=== PATIENT | male | born 1965 | race Caucasian/White ===

== ENCOUNTER 2017-11-22 08:45 | Day surgery (SDC) | payer MEDICARE ==
[2017-11-22] VITALS (7 sets, daily range): BP systolic 92–114; BP diastolic 50–80; PULSE 57–70; RESP 16–22; TEMP 96.7–97.2; O2SAT 90–98
[~2017-11-22] VITALS: Ht 175.3 cm; Wt 90.0 kg
[~2017-11-22 08:45] MED LIST: ACET325 PO; CYCL-36 PO; GABA300C3 PO; KEPP1000 PO; LACT20SO4 PO; LEVO.025 PO; LEXA20TA PO; LORA2INJ2 IM; LORT5TAB PO; POTA-243 PO; SERO100T PO; SERT50 PO; SIMV10TA PO; TRAZ50TA4 PO
[2017-11-22] MEDS ORDERED: SODIUM CHLORIDE 0.9% 1000 ML IV SCH (09:15)
[2017-11-22] MEDS ORDERED: ceFAZolin 2 GM PREMIX 50 ML - gastrostomy and jejunostomy initial insertion IV SCH (09:15)
[2017-11-22 09:21] LABS: HEMATOCRIT 39.5 % (39.0-51.0); HEMOGLOBIN 13.7 GM/DL (13.0-17.0); MEAN CELL VOLUME 88.1 FL (80.0-100.0); MEAN CORPUSCULAR HEMOGLOBIN 30.5 PG (27.0-34.0); MEAN CORPUSCULAR HGB CONC 34.6 % (32.0-36.0); MEAN PLATELET VOLUME 7.5 FL (7.0-11.0); PLATELET COUNT 181 TH/MM3 (150-450); RED BLOOD COUNT 4.48 MIL/MM3 (4.50-5.90); RED CELL DISTRIBUTION WIDTH 14.3 % (11.6-17.2); WHITE BLOOD COUNT 1.9 TH/MM3 (4.0-11.0)
[2017-11-22 09:33] LABS: PROTHROMBIN TIME - PATIENT 10.5 SEC (9.8-11.6)
[2017-11-22] MEDS ORDERED: MIDAZOLAM HCL 2 MG/2 ML VIAL ONE (09:53)
[2017-11-22 10:16] LABS: BANDS 4 % (0-6); CORRECTED NUCLEATED RBC 1 /100 WBC (0-0); LYMPHOCYTES 37 % (9-44); MONOCYTES 24 % (0-8); NEUTROPHIL # MANUAL DIFF 0.7 TH/MM3 (1.8-7.7); NUCLEATED RED BLOOD CELL 1 (0-0); POLYS (SEG NEUTROPHILS) 35 % (16-70)
[2017-11-22] MEDS ORDERED: GLUCAGON 1 MG/ML VIAL ONE (10:21)
--- NOTE | 2017-11-22 12:42 | PD.RAD ---
Post Procedure Progress Note Pre Procedure Diagnosis: (1) Trauma Post Procedure Diagnosis: (1) Trauma Procedure Date: Nov 22, 2017 Supervising Radiologist: Darin Burgess Proceduralist/Assist: Andrea Davenport, RT(R), Wandy Padron RT(R) Anesthesia: Conscious Sedation Plan of Activity Patient to Unit: Nursing Unit Patient Condition: Fair See PACS Report for procedural detail/treatment Feeding Tube Gastrostomy Placement Darin Burgess MD Nov 22, 2017 12:41
--- NOTE | 2017-11-22 13:53 | RADRPT ---
EXAM DATE/TIME: 11/22/2017 10:38 [place] COMPARISON: No previous studies available for comparison. INDICATIONS : Patient presents with a need for a gastronomy tube, here for placement. MEDICAL HISTORY : Stroke Depresion Anxiety SC Disorder Hypothyroidism SURGICAL HISTORY : Crainiotomy ENCOUNTER: Initial ACUITY: 1 week PAIN SCORE: FLUORO TIME: 4 minutes IMAGE SERIES: 1 SEDATION TIME: 20 minutes CONTRAST: 20 cc Omnipaque (iohexol) 350 MEDICATION(S): 1.) 1.5 mg midazolam (Versed) IV 2.) 75 mcg Fentanyl (Sublimaze) IV DEVICE(S): 1.) 18 Fr gastrostomy tube PROCEDURE : 1. Limited abdominal ultrasound. 2. Fluoroscopically guided gastrostomy tube placement. 3. Conscious sedation with continuous EKG and oximetry monitoring. The risks, benefits and alternatives to the procedure were explained and verbal and written consent w as obtained. The site was prepped in sterile fashion. Full sterile technique was used, including ca p, mask, sterile gloves and gown and a large sterile sheet. Hand hygiene and 2% chlorhexidine and/or betadine/alcohol prep was utilized per protocol for cutaneous antisepsis. The skin and subcutaneous tissues were infiltrated with local anesthetic solution. Sterile gel and sterile probe cover were u tilized for ultrasound guidance. Ultrasound was used to jennifer the position of the liver. The stomach was insufflated with room air. Th ree percutaneous fasteners were placed to secure the anterior gastric wall. A small incision was made between the fasteners. The stomach was accessed with an 18 gauge needle. A n 0.035 wire was advanced into the small bowel. The tract was dilated. The gastrostomy tube was int roduced through a peel-away sheath. The position was confirmed with an injection of contrast. Conscious sedation was performed with the prescribed dosages and duration as above in the presence of an independent trained radiology nurse to assist in the monitoring of the patient. EKG and oximetry remained stable throughout the procedure. The patient tolerated the procedure well and there were n o complications. The patient was sent to post anesthesia recovery in stable condition. CONCLUSION: 1. Uncomplicated gastrostomy tube placement Darin Burgess MD on November 22, 2017 at 13:34 Board Certified Radiologist. This report was verified electronically.
== END 2017-11-22 13:55 ==
LOC: HROP 08:45 → HRIP 08:45 → HROP 13:55
PROVIDERS: ATTEND Family Medicine
DX: R62.7 Adult failure to thrive (principal); Z43.1 Encounter for attention to gastrostomy; Z79.899 Other long term (current) drug therapy
CPT/HCPCS: 49440; 85007; 85027; 85610; 85730; 99152; 99153; C1769; C1887; J0690; J1610; J2250; J3010; J7030

== ENCOUNTER 2018-06-18 13:42 | Inpatient (IN) ==
--- NOTE | 2018-06-18 14:36 | ED ---
HPI General Chief complaint: Computer Systems Integrator Problem Stated complaint: Medical Time Seen by Provider: 06/18/18 13:49 Source: EMS and other (SNF nurse via phone) Mode of arrival: EMS Limitations: altered mental status History of Present Illness HPI narrative: Patient is a 53-year-old male presenting from [facility] for evaluation of a displaced G-tube. Staff stated that he pulled out his G-tube this morning and they believe a piece of it is still in his stomach. Patient is on continuous tube feedings as well as a pured diet with thickened liquids. Patient nonverbal, aphasic secondary to a CVA. He is currently under hospice care. H&P is limited. senior living staff has no other physical symptoms to report. Related Data Home Medications Medication Instructions Recorded Confirmed escitalopram oxalate [Lexapro] 10 mg PO DAILY 06/18/18 06/18/18 furosemide [Lasix] 20 mg PO DAILY 06/18/18 06/18/18 gabapentin [Neurontin] 400 mg PO TID 06/18/18 06/18/18 ipratropium-albuterol 3 ml INHALATION Q6-8H PRN 06/18/18 06/18/18 lactulose 20 g PO DAILY 06/18/18 06/18/18 lamotrigine [Lamictal] 200 mg PO BID 06/18/18 06/18/18 levetiracetam [Keppra] 2,000 mg PO BID 06/18/18 06/18/18 levothyroxine 25 mcg PO DAILY 06/18/18 06/18/18 lorazepam [Ativan] 1 mg IM Q6H PRN 06/18/18 06/18/18 lorazepam [Ativan] 1 mg PO DAILY PRN 06/18/18 06/18/18 melatonin 3 mg PO HS PRN 06/18/18 06/18/18 morphine 10 mg BUCCAL Q4-6H PRN 06/18/18 06/18/18 polyethylene glycol 3350 [Miralax] 17 g PO DAILY 06/18/18 06/18/18 potassium chloride 20 meq PO DAILY 06/18/18 06/18/18 quetiapine 400 mg PO QPM 06/18/18 06/18/18 risperidone [Risperdal] 3 mg PO TID 06/18/18 06/18/18 sennosides-docusate sodium 2 tab PO HS 06/18/18 06/18/18 [Senna-S] trazodone 100 mg PO HS 06/18/18 06/18/18 Allergies Allergy/AdvReac Type Severity Reaction Status Date / Time No Known Allergies Allergy Verified 06/18/18 13:57 Review of Systems ROS Unobtainable ROS Unobtainable: unobtainable due to mental condition [facility] Medical History Medical History CVA (cerebral vascular accident) (Acute) Depression (Acute) Dysphagia (Acute) G tube feedings (Acute) GERD (gastroesophageal reflux disease) (Acute) Hemiplegia affecting left nondominant side (Acute) Hyperlipidemia (Acute) Hypokalemia (Acute) Hypothyroidism (Acute) Obesity (Acute) Schizophrenia (Acute) Unspecified mood [affective] disorder (Acute) Unspecified psychosis not due to a substance or known physiological condition ( Acute) Social History Social History Substance History: Past History Smoking Status: Former smoker How Often Do You Have a Drink Containing Alcohol: Never Recent Travel in [facility] within the Last 8 Weeks: No Recent Out of Country Travel within the Last 8 Weeks: No Immunization History Tetanus Immunization: Unsure Exam Narrative Exam Narrative: GENERAL: Overweight, well-developed, alert male. Presenting in no acute distress. SKIN: Focused skin assessment warm/dry. HEAD: Atraumatic. Normocephalic. EYES: Pupils equal and round. No scleral icterus. No injection or drainage. ENT: No nasal bleeding or discharge. Mucous membranes pink and moist. NECK: Trachea midline. No JVD. CARDIOVASCULAR: Regular rate and rhythm. No murmur appreciated. RESPIRATORY: No accessory muscle use. Diminished GASTROINTESTINAL: Abdomen soft, non-tender, nondistended. Hepatic and splenic margins not palpable. No rebound, no guarding, positive bowel sounds. Incision to left upper abdomen where G-tube was placed previously. MUSCULOSKELETAL: No obvious deformities. No clubbing. No cyanosis. No edema. NEUROLOGICAL: Awake and alert. No obvious cranial nerve deficits. Motor grossly within normal limits. Aphasic, garbled PSYCHIATRIC: Appropriate mood and affect; insight and judgment impaired. Course Initial Documented Vital Signs Pulse Rate 73 06/18/18 13:52 Respiratory Rate 24 06/18/18 13:52 Blood Pressure 115/67 06/18/18 13:52 Pulse Oximetry 91 L 06/18/18 13:52 Last Documented Vital Signs Pulse Rate 59 L 06/18/18 17:07 Respiratory Rate 24 06/18/18 17:07 Blood Pressure 110/68 06/18/18 17:07 Pulse Oximetry 94 L 06/18/18 17:07 Medical Decision Making MDM Narrative Medical decision making narrative: Patient is a chronically ill 53-year-old male presenting after his G-tube dislodged this morning. Patient's vital signs are stable, labs and imaging ordered and pending. Patient is currently on hospice/DNR. His guardian is Kita Thomas her phone number is [phone], her cell phone is [phone]. CXR with right infiltrate, azithromycin and rocephin ordered Labs reviewed, UA with reflex culture pending. Pt received rocephin which will treat UTI. Labs with no acute findings CT of the abd/pelvis with radiopaque foreign body in the right lower quadrant, this would be consistent with senior living report that part of the G-tube was still inside, it appears to be passing without difficulty at this time. Attempted to replace G-tube in the emergency department, we were unsuccessful. Patient will be admitted with pneumonia likely aspiration pneumonia. Displaced G-tube with retained portion. Medical Screen Exam Complete: Yes Emergency Medical Condition: Yes Differential Diagnosis Differential Diagnosis: Displaced G-tube vs metabolic abnormality vs aspiration pneumonia vs other Medical Records Medical records reviewed: Yes I reviewed the patient's medical records. Lab Data Lab results reviewed: Yes I reviewed the patient's lab results. Result diagrams: 06/18/18 14:19 06/18/18 14:19 Lab Results 06/18/18 06/18/18 06/18/18 Range/Units 14:19 14:19 14:19 WBC 5.9 (4.0-11.0) th/mm3 RBC 4.77 (4.50-5.90) mil/mm3 Hgb 14.8 (13.0-17.0) gm/dL Hct 42.6 (39.0-51.0) % MCV 89.2 (80.0-100.0) fL MCH 31.0 (27.0-34.0) pg MCHC 34.8 (32.0-36.0) % RDW 14.0 (11.6-17.2) % Plt Count 249 (150-450) th/mm3 MPV 8.1 (7.0-11.0) fL Neut % (Auto) 66.1 (16.0-70.0) % Lymph % (Auto) 19.9 (9.0-44.0) % [place] % (Auto) 10.6 H (0.0-8.0) % Eos % (Auto) 3.1 (0.0-4.0) % Baso % (Auto) 0.3 (0.0-2.0) % Neut # (Auto) 3.9 (1.8-7.7) th/mm3 Lymph # (Auto) 1.2 (1.0-4.8) th/mm3 [place] # (Auto) 0.6 (0.0-0.9) th/mm3 Eos # (Auto) 0.2 (0.0-0.4) th/mm3 Baso # (Auto) 0.0 (0.0-0.2) th/mm3 WBC Differential . Differential Comment Auto diff final PT 10.3 (9.8-11.6) sec INR 1.0 Ratio APTT 27.1 (23.4-31.7) sec Sodium 140 (136-145) meq/L Potassium 4.1 (3.5-5.1) meq/L Chloride 103 (98-107) meq/L Carbon Dioxide 32.2 H (21.0-32.0) meq/L Anion Gap 5 (5-15) meq/L BUN 15 (7-18) mg/dL Creatinine 0.91 (0.60-1.30) mg/dL Estimated GFR 87 L (>89) mL/min Random Glucose 89 (74-106) mg/dL Calcium 8.7 (8.5-10.1) mg/dL Magnesium (1.5-2.5) mg/dL Total Bilirubin 0.2 (0.2-1.0) mg/dL AST 61 H (15-37) U/L ALT 101 H (12-78) U/L Alkaline Phosphatase 93 (45-117) U/L Total Protein 7.4 (6.4-8.2) g/dL Albumin 3.2 L (3.4-5.0) g/dL Urine Color (Yellw/Straw) Urine Clarity (Clear) Urine pH (5.0-8.5) Ur Specific [place] (1.002-1.035) Urine Protein (Neg-Trace) mg/dL Urine Glucose (UA) (Negative) mg/dL Urine Ketones (Negative) mg/dL Urine Occult Blood (Negative) Urine Nitrate (Negative) Urine Bilirubin (Negative) Urine Urobilinogen (Less than 2) mg/dL Ur Leukocyte Esterase (Negative) Amorphous Sediment (None) /hpf Urine Bacteria (None) /hpf Urine Mucus (Occasional) /lpf Micro UA Comment Ur Microscopic Review Urine Culture Comments 06/18/18 06/18/18 Range/Units 14:19 17:08 WBC (4.0-11.0) th/mm3 RBC (4.50-5.90) mil/mm3 Hgb (13.0-17.0) gm/dL Hct (39.0-51.0) % MCV (80.0-100.0) fL MCH (27.0-34.0) pg MCHC (32.0-36.0) % RDW (11.6-17.2) % Plt Count (150-450) th/mm3 MPV (7.0-11.0) fL Neut % (Auto) (16.0-70.0) % Lymph % (Auto) (9.0-44.0) % [place] % (Auto) (0.0-8.0) % Eos % (Auto) (0.0-4.0) % Baso % (Auto) (0.0-2.0) % Neut # (Auto) (1.8-7.7) th/mm3 Lymph # (Auto) (1.0-4.8) th/mm3 [place] # (Auto) (0.0-0.9) th/mm3 Eos # (Auto) (0.0-0.4) th/mm3 Baso # (Auto) (0.0-0.2) th/mm3 WBC Differential Differential Comment PT (9.8-11.6) sec INR Ratio APTT (23.4-31.7) sec Sodium (136-145) meq/L Potassium (3.5-5.1) meq/L Chloride (98-107) meq/L Carbon Dioxide (21.0-32.0) meq/L Anion Gap (5-15) meq/L BUN (7-18) mg/dL Creatinine (0.60-1.30) mg/dL Estimated GFR (>89) mL/min Random Glucose (74-106) mg/dL Calcium (8.5-10.1) mg/dL Magnesium 2.3 (1.5-2.5) mg/dL Total Bilirubin (0.2-1.0) mg/dL AST (15-37) U/L ALT (12-78) U/L Alkaline Phosphatase (45-117) U/L Total Protein (6.4-8.2) g/dL Albumin (3.4-5.0) g/dL Urine Color Yellow (Yellw/Straw) Urine Clarity Cloudy H (Clear) Urine pH 7.0 (5.0-8.5) Ur Specific [place] 1.016 (1.002-1.035) Urine Protein Negative (Neg-Trace) mg/dL Urine Glucose (UA) Negative (Negative) mg/dL Urine Ketones Negative (Negative) mg/dL Urine Occult Blood Negative (Negative) Urine Nitrate Negative (Negative) Urine Bilirubin Negative (Negative) Urine Urobilinogen Less than 2 (Less than 2) mg/dL Ur Leukocyte Esterase Negative (Negative) Amorphous Sediment Few H (None) /hpf Urine Bacteria Rare H (None) /hpf Urine Mucus Few H (Occasional) /lpf Micro UA Comment Cath-culture ind Ur Microscopic Review Not Reportable Urine Culture Comments Cath-cult indicated Imaging Data Radiologist's impression: Abdomen X-Ray 06/18/18 13:58 CONCLUSION: Radiopaque density of uncertain etiology overlying the right lower quadrant. CT scan could be considered to further evaluate the exact location and possible etiology. Constipation. Chest X-Ray 06/18/18 13:59 CONCLUSION: Right infrahilar infiltrate. Abdomen/Pelvis CT 06/18/18 15:39 CONCLUSION: 1. Radiopaque foreign body in the right lower quadrant located along the posterior aspect of the cecum as described. Discharge Plan Discharge Disposition Patient Disposition: 30 Still Patient Discharge Condition Condition: Stable Discharge Details Diagnosis: Acute UTI, Pneumonia, Gastrojejunostomy tube dislodgement Physicians Team ED Provider: Balaji Boles ED Midlevel Provider: Shannon Raymundo Primary Care Provider: of [facility] Rxs /Orders / Referrals /Forms Prescriptions: No Action ipratropium-albuterol 0.5 mg-3 mg(2.5 mg base)/3 mL Solution For Nebulization 3 ml INHALATION Q6-8H PRN (Reason: Shortness Of Breath) RF: 0 polyethylene glycol 3350 [Miralax] 17 gram Powder In Packet 17 g PO DAILY RF: 0 lorazepam [Ativan] 2 mg/mL Solution 1 mg IM Q6H PRN (Reason: Seizure Activity) RF: 0 melatonin 3 mg Tablet 3 mg PO HS PRN (Reason: Insomnia) RF: 0 levothyroxine 25 mcg Tablet 25 mcg PO DAILY RF: 0 morphine 20 mg/5 mL (4 mg/mL) Solution 10 mg BUCCAL Q4-6H PRN (Reason: Acute Pain) RF: 0 furosemide [Lasix] 20 mg Tablet 20 mg PO DAILY RF: 0 lorazepam [Ativan] 1 mg Tablet 1 mg PO DAILY PRN (Reason: Anxiety) RF: 0 lamotrigine [Lamictal] 100 mg Tablet 200 mg PO BID RF: 0 escitalopram oxalate [Lexapro] 10 mg Tablet 10 mg PO DAILY RF: 0 levetiracetam [Keppra] 100 mg/mL Solution 2,000 mg PO BID RF: 0 lactulose 20 gram/30 mL Solution 20 g PO DAILY RF: 0 gabapentin [Neurontin] 400 mg Capsule 400 mg PO TID RF: 0 sennosides-docusate sodium [Senna-S] 8.6-50 mg Tablet 2 tab PO HS RF: 0 risperidone [Risperdal] 3 mg Tablet 3 mg PO TID RF: 0 potassium chloride 20 mEq/15 mL Liquid 20 meq PO DAILY RF: 0 trazodone 100 mg Tablet 100 mg PO HS RF: 0 quetiapine 400 mg Tablet Extended Release 24 Hr 400 mg PO QPM RF: 0 Status ED Status: Admitted Patient
[2018-06-18 14:43] LABS: Baso % (Auto) 0.3 % (0.0-2.0); Eos # (Auto) 0.2 th/mm3 (0.0-0.4); Eos % (Auto) 3.1 % (0.0-4.0); Hematocrit 42.6 % (39.0-51.0); Hemoglobin 14.8 gm/dL (13.0-17.0); Lymph # (Auto) 1.2 th/mm3 (1.0-4.8); Lymph % (Auto) 19.9 % (9.0-44.0); Mean Corpuscular HGB Conc 34.8 % (32.0-36.0); Mean Corpuscular Volume 89.2 fL (80.0-100.0); Mean Platelet Volume 8.1 fL (7.0-11.0); Mono # (Auto) 0.6 th/mm3 (0.0-0.9); Mono % (Auto) 10.6 % (0.0-8.0); Neut # (Auto) 3.9 th/mm3 (1.8-7.7); Neut % (Auto) 66.1 % (16.0-70.0); Platelet Count 249 th/mm3 (150-450); Red Blood Count 4.77 mil/mm3 (4.50-5.90); White Blood Count 5.9 th/mm3 (4.0-11.0)
--- NOTE | 2018-06-18 14:59 | XR ---
EXAM DATE: 06/18/2018 2:54 PM EST AGE/SEX: 53 years / Male INDICATIONS: Shortness of breath. COPD. CLINICAL DATA: This is the patient's initial encounter. Patient reports that signs and symptoms have been present for 1 day and indicates a pain score of 0/10. MEDICAL/SURGICAL HISTORY: Stroke. Left sided weakness. None. COMPARISON: [facility] [place], CHEST SINGLE AP, 07/30/2011. . FINDINGS: A single AP view of the chest demonstrates a parenchymal opacity involving the inferior right hilum. Interstitial prominence throughout the rest of the lungs. Heart is at the upper limits of normal in t erms of size. Pulmonary vasculature poorly evaluated secondary to motion artifact. No effusions. Bony structures are unremarkable. CONCLUSION: Right infrahilar infiltrate. Electronically signed by: Jayce Retana MD 06/18/2018 2:57 PM EST
[2018-06-18] MEDS ORDERED: Azithromycin Inj 500 MG in Sodium Chlor 0.9% Inj 250 ML IV.SIG ONE (15:09)
[2018-06-18 15:11] LABS: Alkaline Phosphatase 93 U/L (45-117); Total Protein 7.4 g/dL (6.4-8.2)
[2018-06-18 15:14] LABS: Activated Partial Thrombo Time 27.1 sec (23.4-31.7); Prothrombin Time 10.3 sec (9.8-11.6)
--- NOTE | 2018-06-18 15:20 | XR ---
EXAM DATE: 06/18/2018 3:06 PM EST AGE/SEX: 53 years / Male INDICATIONS: Foreign body. G-tube was pulled. CLINICAL DATA: This is the patient's initial encounter. Patient reports that signs and symptoms have been present for 1 day and indicates a pain score of 0/10. MEDICAL/SURGICAL HISTORY: Stroke. Chronic obstructive pulmonary disease. Left side weakness. None. COMPARISON: No prior exams available for comparison. FINDINGS: Significant stool burden throughout a normal caliber colon. No dilated loops of bowel. A radiopaque density which appears man-made overlies the right lower quadrant projecting over the cecum. It measur es approximately 1.8 cm in greatest length. The etiology of this is uncertain. Venous calcifications overlie the pelvis. No abnormal masses, calcifications, or organomegaly is seen. The osseous structu res are unremarkable. CONCLUSION: Radiopaque density of uncertain etiology overlying the right lower quadrant. CT scan could be conside red to further evaluate the exact location and possible etiology. Constipation. Electronically signed by: Jayce Retana MD 06/18/2018 3:19 PM EST
[2018-06-18 15:33] LABS: Alanine Aminotransferase 101 U/L (12-78); Albumin 3.2 g/dL (3.4-5.0); Anion Gap 5 meq/L (5-15); Aspartate Aminotransferase 61 U/L (15-37); Blood Urea Nitrogen 15 mg/dL (7-18); Calcium 8.7 mg/dL (8.5-10.1); Carbon Dioxide 32.2 meq/L (21.0-32.0); Chloride 103 meq/L (98-107); Glomerular Filtration Rate 87 mL/min (>89); Glucose,Random 89 mg/dL (74-106); Sodium 140 meq/L (136-145)
[2018-06-18 15:35] LABS: Potassium 4.1 meq/L (3.5-5.1)
--- NOTE | 2018-06-18 16:54 | CT ---
EXAM DATE: 06/18/2018 4:40 PM EST AGE/SEX: 53 years / Male INDICATIONS: G-tube pulled out. Abnormal abdomen plain film with radiopaque density of uncertain candice ology projected over the right lower quadrant. CLINICAL DATA: This is the patient's initial encounter. Patient reports that signs and symptoms have been present for 1 day and indicates a pain score of Nonresponsive. MEDICAL/SURGICAL HISTORY: Cerebrovascular disease. . Kim ORAL CONTRAST: No oral contrast ingested. RADIATION DOSE: 16.90 CTDI (mGy) COMPARISON: [facility], ABDOMEN 1V KUB, 06/18/2018. . TECHNIQUE: Multiple contiguous axial images were obtained through the abdomen and pelvis following b olus infusion of 78 ml Omnipaque 350 (iohexol) nonionic water-soluble contrast as a single exam dos e. No oral contrast ingested. Using automated exposure control and adjustment of the mA and/or kV ac cording to patient size, radiation dose was kept as low as reasonably achievable to obtain optimal di agnostic quality images. DICOM format image data is available electronically for review and comparis on. FINDINGS: Lower Lungs: There is apparent atelectasis in the dependent portions of the lung bases.. Liver: The liver has a homogeneous density without space-occupying lesion. There is no dilation of th e biliary tree. The gallbladder is unremarkable. Spleen: Homogeneous density without enlargement. Pancreas: Unremarkable without mass or calcification. Kidneys: Normal in size and shape. No evidence of mass or hydronephrosis. Adrenal Glands: Unremarkable. Aorta: The aorta and proximal iliac vessels are grossly unremarkable without aneurysmal dilation. Bowel/Mesentery: The bowel loops are grossly unremarkable. The cecum and sigmoid colon have a normal configuration. A high density structure is again noted in the right lower quadrant measuring up to 1 .4 x 1.6 cm. This is located along the posterior aspect of the cecum and demonstrates moderate streak artifact. Abdominal Wall: Intact. The tract from the gastrostomy tube is visualized just to the left of midlin e in the upper abdomen. No radiopaque tubing or foreign body is identified in this region. There is n o hematoma. Retroperitoneum: No evidence of adenopathy in the retrocrural, para-aortic, or deep pelvic regions. Bladder: Contours are smooth. Reproductive Organs: No abnormal masses or calcifications seen. Inguinal: The inguinal region is unremarkable without evidence of adenopathy. Bony Structures: Unremarkable. CONCLUSION: 1. Radiopaque foreign body in the right lower quadrant located along the posterior aspect of the cec um as described. Electronically signed by: Naren Cooney MD 06/18/2018 4:53 PM EST
[2018-06-18 17:31] LABS: Amorphous Sediment,Urine Few /hpf; Bacteria,Urine Rare /hpf; Bilirubin,Urine Negative (Negative); Clarity,Urine Cloudy (Clear); Color,Urine Yellow (Yellw/Straw); Glucose,Urine (UA) Negative (Negative); Leukocyte Esterase,Urine Negative (Negative); Mucus,Urine Few /lpf (Occasional); Nitrite,Urine Negative (Negative); Specific Gravity,Urine 1.016 (1.002-1.035)
[2018-06-18] MEDS ORDERED: Acetaminophen 325 MG Tablet PO PRN (17:52)
[2018-06-18] MEDS ORDERED: Bisacodyl 10 MG Supp RECTAL PRN (17:52)
[2018-06-18] MEDS ORDERED: Naloxone Inj 0.4 MG/ML Vial IV.PUSH PRN (18:11)
--- NOTE | 2018-06-18 18:25 | P.HP ---
History of Present Illness Service: Hospitalist Primary Care Physician: [facility] Chief Complaint: Dislodged G-tube History of Present Illness: Patient is a 53-year-old male with a past medical history of CVA. He presents to the emergency room from his SNF for evaluation of displaced G-tube. History is limited and mostly from staff at intermediate. Patient is aphasic and no family is at bedside. according to the report he pulled the G-tube this morning. Previously on a diet of tube feedings and pured with thickened liquids. - Diagnosis (1) Gastrojejunostomy tube dislodgement (2) Pneumonia (3) Acute UTI (4) Seizure as late effect of cerebrovascular accident (CVA) Review of Systems unobtainable due to mental condition PMF - History History Provided By: Medical Record - Medical History Medical History: Medical History (Last Updated 06/18/18 @ 18:22 by DEANA Hatfield) CVA (cerebral vascular accident) Depression Dysphagia Family history unknown G tube feedings GERD (gastroesophageal reflux disease) Hemiplegia affecting left nondominant side Hyperlipidemia Hypokalemia Hypothyroidism Obesity Schizophrenia Surgical history unknown Unspecified mood [affective] disorder Unspecified psychosis not due to a substance or known physiological condition - Tobacco History Second Hand Smoke Exposure: No Tobacco Use In Past 30 Days: No Smoking Status: Former smoker - Alcohol History How Often Do You Have a Drink Containing Alcohol: Never - Substance Use History Substance History: Past History - Travel History Recent Travel in the [place] Within the Last 8 Weeks: No Recent Travel Out of the Country Within the Last 8 Weeks: No - Immunization History Tetanus Immunization: Unsure Medications and Allergies Active Medications: Active Medications Acetaminophen (Tylenol) 650 mg PO Q4H PRN PRN Reason: Temp > 100.4 Al Hydroxide/Mg Hydroxide (Milk Of Magnesia Liq) 30 ml PO Q12H PRN PRN Reason: Mild Constipation Bisacodyl (Dulcolax Supp) 10 mg RECTAL DAILY PRN PRN Reason: SEVERE CONSITIPATION Sodium Chloride (Ns Inj) 1,000 mls @ 70 mls/hr IV.CONT .[id number] HA Lactulose (Lactulose Liq) 30 ml PO DAILY PRN PRN Reason: SEVERE CONSITIPATION Ondansetron HCl (Zofran Inj) 4 mg IV.PUSH Q6H PRN PRN Reason: NAUSEA OR VOMITING Senna/Docusate Sodium (Nori-Colace) 1 tab PO BID HA Sennosides (Senokot) 17.2 mg PO Q12H PRN PRN Reason: Moderate Constipation Allergies Allergy/AdvReac Type Severity Reaction Status Date / Time No Known Allergies Allergy Verified 06/18/18 13:57 Home Medications Medication Instructions Recorded Confirmed Type escitalopram oxalate [Lexapro] 10 mg PO DAILY 06/18/18 06/18/18 History furosemide [Lasix] 20 mg PO DAILY 06/18/18 06/18/18 History gabapentin [Neurontin] 400 mg PO TID 06/18/18 06/18/18 History ipratropium-albuterol 3 ml INHALATION Q6-8H PRN 06/18/18 06/18/18 History lactulose 20 g PO DAILY 06/18/18 06/18/18 History lamotrigine [Lamictal] 200 mg PO BID 06/18/18 06/18/18 History levetiracetam [Keppra] 2,000 mg PO BID 06/18/18 06/18/18 History levothyroxine 25 mcg PO DAILY 06/18/18 06/18/18 History lorazepam [Ativan] 1 mg IM Q6H PRN 06/18/18 06/18/18 History lorazepam [Ativan] 1 mg PO DAILY PRN 06/18/18 06/18/18 History melatonin 3 mg PO HS PRN 06/18/18 06/18/18 History morphine 10 mg BUCCAL Q4-6H PRN 06/18/18 06/18/18 History polyethylene glycol 3350 [Miralax] 17 g PO DAILY 06/18/18 06/18/18 History potassium chloride 20 meq PO DAILY 06/18/18 06/18/18 History quetiapine 400 mg PO QPM 06/18/18 06/18/18 History risperidone [Risperdal] 3 mg PO TID 06/18/18 06/18/18 History sennosides-docusate sodium 2 tab PO HS 06/18/18 06/18/18 History [Senna-S] trazodone 100 mg PO HS 06/18/18 06/18/18 History Exam Vital signs: Vital Signs 06/18/18 13:52 06/18/18 14:10 06/18/18 14:22 Pulse Rate 73 70 73 Respiratory Rate 24 20 Blood Pressure 115/67 Pulse Oximetry 91 L 92 L 06/18/18 14:53 06/18/18 17:07 Pulse Rate 59 L Respiratory Rate 14 24 Blood Pressure 110/68 Pulse Oximetry 94 L 94 L Intake & Output 06/17/18 06/18/18 06/18/18 18:59 06:59 18:59 Intake Total 350 / 350 Balance 350 / 350 Weight 107.955 kg Intake: IV 350 / 350 Azithromycin Inj 500 MG In NS 250 / 250 Inj 250 ML @ 250 mls/hr IV.SIG ONCE ONE Rx#:[id number] Rocephin Inj 1,000 MG In NS Inj 100 / 100 100 ML @ 200 mls/hr IV.SIG ONCE ONE Rx#:[id number] Narrative: GENERAL: Well-nourished, well-developed adult male in no obvious distress. SKIN: Warm and dry. PEG site with out significant erythema or drainage. HEAD: Atraumatic. Normocephalic. CARDIOVASCULAR: Regular rate and rhythm. RESPIRATORY: No accessory muscle use. Rhonchi and wheeze. Breath sounds equal bilaterally. GASTROINTESTINAL: Abdomen soft, non-tender, distended. Positive bowel sounds. MUSCULOSKELETAL: Extremities without clubbing, cyanosis, or edema. No obvious deformities. NEUROLOGICAL: Awake and alert. Results - Labs CBC & Chem 7: 06/18/18 14:19 06/18/18 14:19 Labs: Laboratory Results - last 24 hr 06/18/18 06/18/18 06/18/18 14:19 14:19 14:19 WBC 5.9 RBC 4.77 Hgb 14.8 Hct 42.6 MCV 89.2 MCH 31.0 MCHC 34.8 RDW 14.0 Plt Count 249 MPV 8.1 Neut % (Auto) 66.1 Lymph % (Auto) 19.9 Johnston % (Auto) 10.6 H Eos % (Auto) 3.1 Baso % (Auto) 0.3 Neut # (Auto) 3.9 Lymph # (Auto) 1.2 Johnston # (Auto) 0.6 Eos # (Auto) 0.2 Baso # (Auto) 0.0 WBC Differential . Differential Comment Auto diff final PT 10.3 INR 1.0 APTT 27.1 Sodium 140 Potassium 4.1 Chloride 103 Carbon Dioxide 32.2 H Anion Gap 5 BUN 15 Creatinine 0.91 Estimated GFR 87 L Random Glucose 89 Calcium 8.7 Magnesium Total Bilirubin 0.2 AST 61 H ALT 101 H Alkaline Phosphatase 93 Total Protein 7.4 Albumin 3.2 L Urine Color Urine Clarity Urine pH Ur Specific [place] Urine Protein Urine Glucose (UA) Urine Ketones Urine Occult Blood Urine Nitrate Urine Bilirubin Urine Urobilinogen Ur Leukocyte Esterase Amorphous Sediment Urine Bacteria Urine Mucus Micro UA Comment Ur Microscopic Review Urine Culture Comments 06/18/18 06/18/18 14:19 17:08 WBC RBC Hgb Hct MCV MCH MCHC RDW Plt Count MPV Neut % (Auto) Lymph % (Auto) Johnston % (Auto) Eos % (Auto) Baso % (Auto) Neut # (Auto) Lymph # (Auto) Johnston # (Auto) Eos # (Auto) Baso # (Auto) WBC Differential Differential Comment PT INR APTT Sodium Potassium Chloride Carbon Dioxide Anion Gap BUN Creatinine Estimated GFR Random Glucose Calcium Magnesium 2.3 Total Bilirubin AST ALT Alkaline Phosphatase Total Protein Albumin Urine Color Yellow Urine Clarity Cloudy H Urine pH 7.0 Ur Specific [place] 1.016 Urine Protein Negative Urine Glucose (UA) Negative Urine Ketones Negative Urine Occult Blood Negative Urine Nitrate Negative Urine Bilirubin Negative Urine Urobilinogen Less than 2 Ur Leukocyte Esterase Negative Amorphous Sediment Few H Urine Bacteria Rare H Urine Mucus Few H Micro UA Comment Cath-culture ind Ur Microscopic Review Not Reportable Urine Culture Comments Cath-cult indicated - Imaging Impressions Abdomen X-Ray 06/18/18 13:58 CONCLUSION: Radiopaque density of uncertain etiology overlying the right lower quadrant. CT scan could be considered to further evaluate the exact location and possible etiology. Constipation. Chest X-Ray 06/18/18 13:59 CONCLUSION: Right infrahilar infiltrate. Abdomen/Pelvis CT 06/18/18 15:39 CONCLUSION: 1. Radiopaque foreign body in the right lower quadrant located along the posterior aspect of the cecum as described. Caprini VTE Risk Assessment Caprini VTE Risk Assessment: No/Low Risk (score <= 1) Caprini Risk Assessment Model: Point Value = 1 Point Value = 2 Point Value = 3 Point Value = 5 Age 41-60 Minor surgery BMI > 25 kg/m2 Swollen legs Varicose veins or History of unexplained or recurrent spontaneous Oral contraceptives or hormone replacement Sepsis (< 1 month) Serious lung disease, including pneumonia (< 1 month) Abnormal pulmonary function Acute myocardial infarction Congestive heart failure (< 1 month) History of inflammatory bowel disease Medical patient at bed rest Age 61-74 Arthroscopic surgery Major open surgery (> 45 min) Laparoscopic surgery (> 45 min) Malignancy Confined to bed (> 72 hours) Immobilizing plaster cast Central venous access Age >= 75 History of VTE Family history of VTE Factor V Leiden Prothrombin [id number] Lupus anticoagulant Anticardiolipin antibodies Elevated serum homocysteine Heparin-induced thrombocytopenia Other congenital or acquired thrombophilia Stroke (< 1 month) Elective arthroplasty Hip, pelvis, or leg fracture Acute spinal cord injury (< 1 month) Prophylaxis Regimen: Total Risk Factor Score Risk Level Prophylaxis Regimen 0-1 Low Early ambulation 2 Moderate Order ONE of the following: *Sequential Compression Device (SCD) *Heparin 5000 units SQ BID 3-4 Higher Order ONE of the following medications: *Heparin 5000 units SQ TID *Enoxaparin/Lovenox 40 mg SQ daily (WT < 150 kg, CrCl > 30 mL/min) *Enoxaparin/Lovenox 30 mg SQ daily (WT < 150 kg, CrCl > 10-29 mL/min) *Enoxaparin/Lovenox 30 mg SQ BID (WT < 150 kg, CrCl > 30 mL/min) AND/OR *Sequential Compression Device (SCD) 5 or more Highest Order ONE of the following medications: *Heparin 5000 units SQ TID (Preferred with Epidurals) *Enoxaparin/Lovenox 40 mg SQ daily (WT < 150 kg, CrCl > 30 mL/min) *Enoxaparin/Lovenox 30 mg SQ daily (WT < 150 kg, CrCl > 10-29 mL/min) *Enoxaparin/Lovenox 30 mg SQ BID (WT < 150 kg, CrCl > 30 mL/min) AND *Sequential Compression Device (SCD) Assessment and Plan - Assessment (1) Gastrojejunostomy tube dislodgement Code(s): Z43.4 - Encounter for attention to other artificial openings of digestive tract Status: Acute (2) Pneumonia Code(s): J18.9 - Pneumonia, unspecified organism Status: Acute (3) Acute UTI Code(s): N39.0 - Urinary tract infection, site not specified Status: Acute (4) Seizure as late effect of cerebrovascular accident (CVA) Code(s): I69.398 - Other sequelae of cerebral infarction; R56.9 - Unspecified convulsions Status: Chronic - Plan Patient is a 53-year-old male with a past medical history of CVA. He presents to the emergency room from his SNF for evaluation of displaced G-tube. Displaced medical assistant cardiology/G-tube -ED attempted to replace without success -Monitor stool to confirm that retained sectioned is passed. -GI consult; appreciate assistance Pneumonia. -Started on azithromycin and Rocephin in ED; continue -Concern for aspiration; speech consult ordered UTI -Continue Rocephin -Cultures pending; monitor for sensitivity Seizures due to prior CVA -Speech consult ordered to see if able to take p.o. medications, if unable will need to adjust home medication medications DVT prophylaxis: SCDs Discharge planning: Likely will return to [facility] where he lives. Patient is on hospice at SNF and is confirmed DNR. Discussed with: Nurse, Dr. Edwards (2) Pneumonia Qualifiers: Pneumonia type: due to unspecified organism Laterality: unspecified laterality Lung location: unspecified part of lung Qualified Code(s): J18.9 - Pneumonia, unspecified organism
[2018-06-18] MEDS: Senna/Docusate Sodium 8.6/50 MG Tablet PO SCH (21:44)
[2018-06-18] MEDS: Sod Chloride 0.9% Inj 1,000 ML IV.CONT SCH (21:44)
[2018-06-18] MEDS: Morphine Sulfate Inj 2 MG/ML Vial IV.PUSH PRN (21:56)
[2018-06-19] MEDS: Senna/Docusate Sodium 8.6/50 MG Tablet PO SCH ×2 (07:59→20:26)
[2018-06-19] MEDS: Sod Chloride 0.9% Inj 1,000 ML IV.CONT SCH ×2 (07:59→17:09)
--- NOTE | 2018-06-19 14:27 | P.CONGI ---
History of Present Illness Consult date: 06/19/18 Consult reason: PEG tube dislodgment Chief complaint: pneumonia, displaced G-tube, UTI History of Present Illness: This patient is a 53-year-old male with past medical history significant for CVA , depression, dysphagia, GERD, hemiplegia, hyperlipidemia, hypokalemia, hypothyroidism, obesity and schizophrenia. Surgical history is not known. Patient was brought to the emergency room at [facility] from a [facility] for evaluation of displaced G-tube. Patient is a phasic and there are no family members present. Per documentation, patient pulled out his G-tube and was previously on a diet of tube feedings and pureed food with thickened liquids. <Nancy Serna - Last Filed: 06/19/18 14:19> Review of Systems other <Nancy Serna - Last Filed: 06/19/18 14:19> PMFSH - History History Provided By: Patient - Medical History Medical History: Medical History (Last Reviewed 06/19/18 @ 07:52 by Kathya Kennedy) CVA (cerebral vascular accident) Depression Dysphagia Family history unknown G tube feedings GERD (gastroesophageal reflux disease) Hemiplegia affecting left nondominant side Hyperlipidemia Hypokalemia Hypothyroidism Obesity Schizophrenia Surgical history unknown Unspecified mood [affective] disorder Unspecified psychosis not due to a substance or known physiological condition - Tobacco History Second Hand Smoke Exposure: No Tobacco Use In Past 30 Days: No Smoking Status: Never smoker - Alcohol History How Often Do You Have a Drink Containing Alcohol: Never - Substance Use History Substance History: No History of Abuse - Travel History Recent Travel in the [place] Within the Last 8 Weeks: No Recent Travel Out of the Country Within the Last 8 Weeks: No - Immunization History Tetanus Immunization: Unsure Hx Influenza Vaccine This Season: Yes <Nancy Serna - Last Filed: 06/19/18 14:19> - Medical History Medical History: Medical History (Last Reviewed 06/19/18 @ 07:52 by Kathya Kennedy) CVA (cerebral vascular accident) Depression Dysphagia Family history unknown G tube feedings GERD (gastroesophageal reflux disease) Hemiplegia affecting left nondominant side Hyperlipidemia Hypokalemia Hypothyroidism Obesity Schizophrenia Surgical history unknown Unspecified mood [affective] disorder Unspecified psychosis not due to a substance or known physiological condition <Johnathon Zavala - Last Filed: 06/20/18 09:50> Medications and Allergies Active Medications: Active Medications Acetaminophen (Tylenol) 650 mg PO Q4H PRN PRN Reason: Temp > 100.4 Al Hydroxide/Mg Hydroxide (Milk Of Magnesia Liq) 30 ml PO Q12H PRN PRN Reason: Mild Constipation Albuterol (Duoneb Neb ([facility])) 1 ampul NEB Q6HR WHILE AWAKE [facility] Last Admin: 06/19/18 13:40 Dose: 1 ampul Bisacodyl (Dulcolax Supp) 10 mg RECTAL DAILY PRN PRN Reason: SEVERE CONSITIPATION Sodium Chloride (Ns Inj) 1,000 mls @ 70 mls/hr IV.CONT .[id number] [facility] Last Admin: 06/19/18 07:59 Dose: Not Given Lactulose (Lactulose Liq) 30 ml PO DAILY PRN PRN Reason: SEVERE CONSITIPATION Morphine Sulfate (Morphine Inj) 2 mg IV.PUSH Q3H PRN PRN Reason: PAIN 3-5; IF UNABLE TO TAKE PO Last Admin: 06/18/18 21:56 Dose: 2 mg Naloxone HCl (Narcan Inj) 0.4 mg IV.PUSH UNSCH PRN PRN Reason: SEE LABEL COMMENTS Ondansetron HCl (Zofran Inj) 4 mg IV.PUSH Q6H PRN PRN Reason: NAUSEA OR VOMITING Senna/Docusate Sodium (Nori-Colace) 1 tab PO BID [facility] Last Admin: 06/19/18 07:59 Dose: Not Given Sennosides (Senokot) 17.2 mg PO Q12H PRN PRN Reason: Moderate Constipation <Serna,Nancy - Last Filed: 06/19/18 14:19> Active Medications: Active Medications Acetaminophen (Tylenol) 650 mg PO Q4H PRN PRN Reason: Temp > 100.4 Al Hydroxide/Mg Hydroxide (Milk Of Magnesia Liq) 30 ml PO Q12H PRN PRN Reason: Mild Constipation Albuterol (Duoneb Neb (Brigida)) 1 ampul NEB Q6HR WHILE AWAKE [facility] Last Admin: 06/20/18 08:46 Dose: Not Given Bisacodyl (Dulcolax Supp) 10 mg RECTAL DAILY PRN PRN Reason: SEVERE CONSITIPATION Escitalopram Oxalate (Lexapro) 10 mg PO DAILY [facility] Last Admin: 06/20/18 08:24 Dose: Not Given Furosemide (Lasix) 20 mg PO DAILY [facility] Last Admin: 06/20/18 08:24 Dose: Not Given Sodium Chloride (Ns Inj) 1,000 mls @ 70 mls/hr IV.CONT .[id number] [facility] Last Infusion: 06/20/18 07:53 Dose: Infused Cefazolin Sodium 1,000 mg/ (Sodium Chloride) 100 mls @ 100 mls/hr IV.SIG ONCE ONE Stop: 06/20/18 16:59 Lactated Ringer's (Lr 1000 Ml Inj) 1,000 mls @ 30 mls/hr IV.CONT .Q24H ONE Stop: 06/21/18 08:44 Sodium Chloride (Ns Inj) 500 mls @ 30 mls/hr IV.CONT .[id number] ONE Stop: 06/21/18 01:24 Lactulose (Lactulose Liq) 30 ml PO DAILY PRN PRN Reason: SEVERE CONSITIPATION Lamotrigine (Lamictal) 200 mg PO BID [facility] Last Admin: 06/20/18 08:24 Dose: Not Given Levetiracetam (Keppra Liq) 2,000 mg PO BID [facility] Last Admin: 06/20/18 08:24 Dose: Not Given Lorazepam (Ativan) 1 mg PO DAILY PRN PRN Reason: Anxiety Last Admin: 06/19/18 17:10 Dose: 1 mg Morphine Sulfate (Morphine Inj) 2 mg IV.PUSH Q3H PRN PRN Reason: PAIN 3-5; IF UNABLE TO TAKE PO Last Admin: 06/18/18 21:56 Dose: 2 mg Naloxone HCl (Narcan Inj) 0.4 mg IV.PUSH UNSCH PRN PRN Reason: SEE LABEL COMMENTS Ondansetron HCl (Zofran Inj) 4 mg IV.PUSH Q6H PRN PRN Reason: NAUSEA OR VOMITING Quetiapine Fumarate (Seroquel) 200 mg PO BID [facility] Last Admin: 06/20/18 08:24 Dose: Not Given Risperidone (Risperdal) 3 mg PO TID [facility] Last Admin: 06/20/18 08:24 Dose: Not Given Senna/Docusate Sodium (Nori-Colace) 1 tab PO BID [facility] Last Admin: 06/20/18 08:24 Dose: Not Given Sennosides (Senokot) 17.2 mg PO Q12H PRN PRN Reason: Moderate Constipation Trazodone HCl (Desyrel) 100 mg PO HS [facility] Last Admin: 06/19/18 20:29 Dose: 100 mg <EdithLizjez A - Last Filed: 06/20/18 09:50> Allergies Allergy/AdvReac Type Severity Reaction Status Date / Time No Known Allergies Allergy Verified 06/18/18 13:57 Home Medications Medication Instructions Recorded Confirmed Type escitalopram oxalate [Lexapro] 10 mg PO DAILY 06/18/18 06/18/18 History furosemide [Lasix] 20 mg PO DAILY 06/18/18 06/18/18 History gabapentin [Neurontin] 400 mg PO TID 06/18/18 06/18/18 History ipratropium-albuterol 3 ml INHALATION Q6-8H PRN 06/18/18 06/18/18 History lactulose 20 g PO DAILY 06/18/18 06/18/18 History lamotrigine [Lamictal] 200 mg PO BID 06/18/18 06/18/18 History levetiracetam [Keppra] 2,000 mg PO BID 06/18/18 06/18/18 History levothyroxine 25 mcg PO DAILY 06/18/18 06/18/18 History lorazepam [Ativan] 1 mg IM Q6H PRN 06/18/18 06/18/18 History lorazepam [Ativan] 1 mg PO DAILY PRN 06/18/18 06/18/18 History melatonin 3 mg PO HS PRN 06/18/18 06/18/18 History morphine 10 mg BUCCAL Q4-6H PRN 06/18/18 06/18/18 History polyethylene glycol 3350 [Miralax] 17 g PO DAILY 06/18/18 06/18/18 History potassium chloride 20 meq PO DAILY 06/18/18 06/18/18 History quetiapine 400 mg PO QPM 06/18/18 06/18/18 History risperidone [Risperdal] 3 mg PO TID 06/18/18 06/18/18 History sennosides-docusate sodium 2 tab PO HS 06/18/18 06/18/18 History [Senna-S] trazodone 100 mg PO HS 06/18/18 06/18/18 History Exam Vital signs: Vital Signs 06/18/18 14:22 06/18/18 14:53 06/18/18 17:07 Temperature Pulse Rate 73 59 L Respiratory Rate 14 24 Blood Pressure 110/68 Pulse Oximetry 92 L 94 L 94 L 06/18/18 20:00 06/18/18 20:38 06/18/18 20:39 Temperature 98.0 F Pulse Rate 60 55 L Respiratory Rate 20 18 Blood Pressure 130/81 Pulse Oximetry 94 L 92 L 06/19/18 00:00 06/19/18 04:00 06/19/18 08:34 Temperature 97.3 F L 97.2 F L Pulse Rate 60 58 L 54 L Respiratory Rate 20 20 16 Blood Pressure 106/73 99/58 L Pulse Oximetry 94 L 96 95 06/19/18 12:00 06/19/18 13:40 06/19/18 13:42 Temperature Pulse Rate 58 L 68 Respiratory Rate 16 Blood Pressure Pulse Oximetry 94 L Intake & Output 06/18/18 06/19/18 06/19/18 18:59 06:59 18:59 Intake Total 350 / 350 0 / 0 Balance 350 / 350 0 / 0 Weight 107.955 kg 107.8 kg Intake: IV 350 / 350 Azithromycin Inj 500 MG In NS 250 / 250 Inj 250 ML @ 250 mls/hr IV.SIG ONCE ONE Rx#:[id number] Rocephin Inj 1,000 MG In NS Inj 100 / 100 100 ML @ 200 mls/hr IV.SIG ONCE ONE Rx#:[id number] Oral 0 / 0 Other: # Incontinent Voids 3 Date of Last Bowel Movement 06/19/18 - Constitutional chronically ill appearing - Routine HEENT Exam Head: Present: normocephalic - Routine Respiratory Exam Present: CTA bilaterally. Absent: accessory muscle use - Routine Abdominal Exam Present: soft, normoactive bowel sounds, wound. Absent: tenderness, distended, guarding, firm Comments: G-tube insertion site with dressing no drainage or bleeding noted - Routine Extremities Exam Present: pulses intact - Routine Skin Exam Present: dry, warm - Routine Neurological Exam Present: alert Patient dysphasia <Serna,Nancy - Last Filed: 06/19/18 14:19> Vital signs: Vital Signs 06/19/18 12:00 06/19/18 13:40 06/19/18 13:42 Temperature 98.0 F Pulse Rate 52 L 68 Respiratory Rate 18 16 Blood Pressure 102/60 Pulse Oximetry 93 L 94 L 06/19/18 16:00 06/19/18 20:00 06/19/18 20:46 Temperature 97.6 F 98.1 F Pulse Rate 61 63 65 Respiratory Rate 18 20 16 Blood Pressure 96/71 L 125/62 Pulse Oximetry 92 L 93 L 06/20/18 00:00 06/20/18 04:00 06/20/18 05:50 Temperature 98.0 F 98.0 F Pulse Rate 71 55 L Respiratory Rate 20 20 Blood Pressure 121/63 86/57 L 102/63 Pulse Oximetry 94 L 93 L Intake & Output 06/19/18 06/20/18 06/20/18 18:59 06:59 18:59 Intake Total 1000 / 1000 0 / 0 1000 / 1000 Balance 1000 / 1000 0 / 0 1000 / 1000 Weight 107.6 kg Intake: IV 1000 / 1000 1000 / 1000 NS Inj 1,000 ML @ 70 mls/hr IV. 1000 / 1000 1000 / 1000 CONT .[id number] [facility] Rx#:[id number] Oral 0 / 0 Other: # Voids 3 # Incontinent Voids 3 Date of Last Bowel Movement 06/19/18 06/19/18 # Bowel Movements 2 # Incontinent Bowel Movements 2 <Johnathon Zavala A - Last Filed: 06/20/18 09:50> Results - Labs CBC & Chem 7: 06/18/18 14:19 06/18/18 14:19 Labs: Laboratory Results - last 24 hr 06/18/18 06/18/18 06/18/18 14:19 14:19 14:19 WBC 5.9 RBC 4.77 Hgb 14.8 Hct 42.6 MCV 89.2 MCH 31.0 MCHC 34.8 RDW 14.0 Plt Count 249 MPV 8.1 Neut % (Auto) 66.1 Lymph % (Auto) 19.9 [place] % (Auto) 10.6 H Eos % (Auto) 3.1 Baso % (Auto) 0.3 Neut # (Auto) 3.9 Lymph # (Auto) 1.2 [place] # (Auto) 0.6 Eos # (Auto) 0.2 Baso # (Auto) 0.0 WBC Differential . Differential Comment Auto diff final PT 10.3 INR 1.0 APTT 27.1 Sodium 140 Potassium 4.1 Chloride 103 Carbon Dioxide 32.2 H Anion Gap 5 BUN 15 Creatinine 0.91 Estimated GFR 87 L Random Glucose 89 Calcium 8.7 Magnesium Total Bilirubin 0.2 AST 61 H ALT 101 H Alkaline Phosphatase 93 Total Protein 7.4 Albumin 3.2 L Urine Color Urine Clarity Urine pH Ur Specific [place] Urine Protein Urine Glucose (UA) Urine Ketones Urine Occult Blood Urine Nitrate Urine Bilirubin Urine Urobilinogen Ur Leukocyte Esterase Amorphous Sediment Urine Bacteria Urine Mucus Micro UA Comment Ur Microscopic Review Urine Culture Comments 06/18/18 06/18/18 14:19 17:08 WBC RBC Hgb Hct MCV MCH MCHC RDW Plt Count MPV Neut % (Auto) Lymph % (Auto) [place] % (Auto) Eos % (Auto) Baso % (Auto) Neut # (Auto) Lymph # (Auto) [place] # (Auto) Eos # (Auto) Baso # (Auto) WBC Differential Differential Comment PT INR APTT Sodium Potassium Chloride Carbon Dioxide Anion Gap BUN Creatinine Estimated GFR Random Glucose Calcium Magnesium 2.3 Total Bilirubin AST ALT Alkaline Phosphatase Total Protein Albumin Urine Color Yellow Urine Clarity Cloudy H Urine pH 7.0 Ur Specific [place] 1.016 Urine Protein Negative Urine Glucose (UA) Negative Urine Ketones Negative Urine Occult Blood Negative Urine Nitrate Negative Urine Bilirubin Negative Urine Urobilinogen Less than 2 Ur Leukocyte Esterase Negative Amorphous Sediment Few H Urine Bacteria Rare H Urine Mucus Few H Micro UA Comment Cath-culture ind Ur Microscopic Review Not Reportable Urine Culture Comments Cath-cult indicated - Imaging Impressions Abdomen X-Ray 06/18/18 13:58 CONCLUSION: Radiopaque density of uncertain etiology overlying the right lower quadrant. CT scan could be considered to further evaluate the exact location and possible etiology. Constipation. Chest X-Ray 06/18/18 13:59 CONCLUSION: Right infrahilar infiltrate. Abdomen/Pelvis CT 06/18/18 15:39 CONCLUSION: 1. Radiopaque foreign body in the right lower quadrant located along the posterior aspect of the cecum as described. <Nancy Serna - Last Filed: 06/19/18 14:19> - Labs CBC & Chem 7: 06/18/18 14:19 06/18/18 14:19 <Johnathon Zavala - Last Filed: 06/20/18 09:50> Assessment and Plan (1) Gastrojejunostomy tube dislodgement Status: Acute Code(s): Z43.4 - Encounter for attention to other artificial openings of digestive tract - Plan This patient is a 53-year-old male with past medical history significant for CVA , depression, dysphagia, GERD, hemiplegia, hyperlipidemia, hypokalemia, hypothyroidism, obesity and schizophrenia. Surgical history is not known. Patient was brought to the emergency room at [facility] from a [facility] for evaluation of displaced G-tube. Patient is a phasic and there are no family members present. Per documentation, patient pulled out his G-tube and was previously on a diet of tube feedings and pureed food with thickened liquids. PEG tube displacement As per ER documentation, HPI reveals patient brought to emergency room from [facility] facility for evaluation of displaced G-tube. Plan N.p.o. Obtain consent for PEG tube placement Nutrition consult for tube feeding Ancef 1 g on-call Continue antiemetic Bowel regimen Supportive care Further recommendations to follow This patient has been seen by myself and Dr. Zavala and this note is written on his behalf - Attending Attestation Dr. zavala <Nancy Serna - Last Filed: 06/19/18 14:19> (1) Gastrojejunostomy tube dislodgement Status: Acute Code(s): Z43.4 - Encounter for attention to other artificial openings of digestive tract - Attending Attestation Agree with the plan as above. Will obtain consent for PEG placement in AM. Thank you for the consult. <Johnathon Zavala - Last Filed: 06/20/18 09:50>
[2018-06-19] MEDS ORDERED: LORazepam 1 MG Tablet PO PRN (14:33)
--- NOTE | 2018-06-19 17:04 | P.PNIM ---
Subjective Interval history: 53 yo male with history of major stroke affecting left side and secondary seizure disorder admitted from SNF due to concern for G-tube displacement. Patient is mostly aphasic/dysphasic and it is difficult for him to communicate history. He is able to indicate that he is not in pain but that his mouth is a bit dry. Physical Exam Vital signs: Vital Signs 06/18/18 17:07 06/18/18 20:00 06/18/18 20:38 Temperature 98.0 F Pulse Rate 59 L 60 Respiratory Rate 24 20 Blood Pressure 110/68 130/81 Pulse Oximetry 94 L 94 L 92 L 06/18/18 20:39 06/19/18 00:00 06/19/18 04:00 Temperature 97.3 F L 97.2 F L Pulse Rate 55 L 60 58 L Respiratory Rate 18 20 20 Blood Pressure 106/73 99/58 L Pulse Oximetry 94 L 96 06/19/18 08:34 06/19/18 12:00 06/19/18 13:40 Temperature Pulse Rate 54 L 58 L 68 Respiratory Rate 16 16 Blood Pressure Pulse Oximetry 95 06/19/18 13:42 Temperature Pulse Rate Respiratory Rate Blood Pressure Pulse Oximetry 94 L Intake & Output 06/18/18 06/19/18 06/19/18 18:59 06:59 18:59 Intake Total 350 / 350 0 / 0 Balance 350 / 350 0 / 0 Weight 107.955 kg 107.8 kg Intake: IV 350 / 350 Azithromycin Inj 500 MG In NS 250 / 250 Inj 250 ML @ 250 mls/hr IV.SIG ONCE ONE Rx#:[id number] Rocephin Inj 1,000 MG In NS Inj 100 / 100 100 ML @ 200 mls/hr IV.SIG ONCE ONE Rx#:[id number] Oral 0 / 0 Other: # Incontinent Voids 3 Date of Last Bowel Movement 06/19/18 - Constitutional no acute distress, obese - Routine HEENT Exam Head: Present: normocephalic, atraumatic - Routine Respiratory Exam Present: CTA bilaterally. Absent: wheezes, crackles - Routine Cardiovascular Exam Present: RRR, S1, S2. Absent: murmur - Routine Abdominal Exam Present: soft, wound (c/d/i prior G-tube site, G-tube no longer in place). Absent: tenderness, distended, firm, rigid, mass - Routine Extremities Exam Absent: cyanosis, edema - Routine Neurological Exam Present: alert, motor deficit (on left side especially LUE), facial asymmetry. Absent: oriented X3, CN II-XII intact (significant CN XII, VII, and X/IX deficit on the left side), normal speech Results - Labs CBC & Chem 7: 06/18/18 14:19 06/18/18 14:19 Laboratory Results - last 24 hr 06/18/18 17:08 Urine Color Yellow Urine Clarity Cloudy H Urine pH 7.0 Ur Specific [place] 1.016 Urine Protein Negative Urine Glucose (UA) Negative Urine Ketones Negative Urine Occult Blood Negative Urine Nitrate Negative Urine Bilirubin Negative Urine Urobilinogen Less than 2 Ur Leukocyte Esterase Negative Amorphous Sediment Few H Urine Bacteria Rare H Urine Mucus Few H Micro UA Comment Cath-culture ind Ur Microscopic Review Not Reportable Urine Culture Comments Cath-cult indicated Microbiology 06/18/18 17:08 Catheterized Urine Urine Culture - Preliminary No growth in 24 hours 06/18/18 15:20 Blood - Peripheral Aerobic Blood Culture - Preliminary No growth in 1 day 06/18/18 15:20 Blood - Peripheral Anaerobic Blood Culture - Preliminary No growth in 1 day 06/18/18 15:15 Blood - Peripheral Aerobic Blood Culture - Preliminary No growth in 1 day 06/18/18 15:15 Blood - Peripheral Anaerobic Blood Culture - Preliminary No growth in 1 day - Imaging Impressions Abdomen/Pelvis CT 06/18/18 15:39 CONCLUSION: 1. Radiopaque foreign body in the right lower quadrant located along the posterior aspect of the cecum as described. 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 G-tube displacement Has history of G-tube placed due to being unable to take much PO (swallowing difficulty from stroke) CT abd/pelvis shows foreign body which probably represents displaced G-tube. In any case, abdominal exam benign and foreign body will pass on its own likely without issue, but G-tube needs to be replaced. * GI consulted, appreciate recs * N.p.o. * Obtain consent for PEG tube placement * Nutrition consult for tube feeding * Ancef 1 g on-call * Continue antiemetic * Bowel regimen * Supportive care * Further recommendations to follow 2. Seizure disorder 2/2 prior stroke Currently with no seizure activity * Continue home seizure / psychiatric medications: lorazepam, Keppra, Lamictal, Risperdal, Trazodone, Seroquel * Per ST recommendation: administer meds crushed in pureed consistency. If this is not possible will hold. Discharge Planning: Return to SNF pending PEG tube re-placement, additional GI recs
[2018-06-19] MEDS: lamoTRIgine 100 MG Tablet PO SCH (20:28)
[2018-06-19] MEDS: traZODone 100 MG Tablet PO SCH (20:29)
[2018-06-20] MEDS: Sod Chloride 0.9% Inj 1,000 ML IV.CONT SCH ×2 (07:09→13:59)
[2018-06-20] MEDS: Senna/Docusate Sodium 8.6/50 MG Tablet PO SCH ×2 (08:24→20:11)
[2018-06-20] MEDS: lamoTRIgine 100 MG Tablet PO SCH ×2 (08:24→20:12)
[2018-06-20] MEDS: Furosemide 20 MG Tablet PO SCH (08:24)
[2018-06-20] MEDS: Escitalopram 10 MG Tablet PO SCH (08:24)
[2018-06-20] MEDS ORDERED: Chlorhexidine Gluconate 2% 1 Pack (2 Cloths) TOPICAL ONE (08:45)
[2018-06-20] MEDS ORDERED: Sodium Chlor 0.9% Inj 500 ML IV.CONT ONE (08:45)
[2018-06-20] MEDS ORDERED: Metoprolol Tartrate 25 MG Tablet PO ONE (08:45)
[2018-06-20] MEDS ORDERED: ceFAZolin 1 GM Premix Inj 1 GM/50 ML FROZ.PIGGY IV.SIG ONE ×3 (09:46→14:21)
--- NOTE | 2018-06-20 09:54 | P.PN ---
Subjective Interval history: This is a pleasant 53 y/o male with history of Major stroke affecting the left side and secondary seizure disorder, admitted from SNF due to concern for G-tube displacement. Patient is mostly aphasic. 06/20: Seen in his bedroom status post PEG placement by GI specialist, at this time will start tube feedings Dietitian Following, no nausea, vomit or diarrhea. Physical Exam Vital signs: Vital Signs 06/19/18 12:00 06/19/18 13:40 06/19/18 13:42 Temperature 98.0 F Pulse Rate 52 L 68 Respiratory Rate 18 16 Blood Pressure 102/60 Pulse Oximetry 93 L 94 L 06/19/18 16:00 06/19/18 20:00 06/19/18 20:46 Temperature 97.6 F 98.1 F Pulse Rate 61 63 65 Respiratory Rate 18 20 16 Blood Pressure 96/71 L 125/62 Pulse Oximetry 92 L 93 L 06/20/18 00:00 06/20/18 04:00 06/20/18 05:50 Temperature 98.0 F 98.0 F Pulse Rate 71 55 L Respiratory Rate 20 20 Blood Pressure 121/63 86/57 L 102/63 Pulse Oximetry 94 L 93 L Intake & Output 06/19/18 06/20/18 06/20/18 18:59 06:59 18:59 Intake Total 1000 / 1000 0 / 0 1000 / 1000 Balance 1000 / 1000 0 / 0 1000 / 1000 Weight 107.6 kg Intake: IV 1000 / 1000 1000 / 1000 NS Inj 1,000 ML @ 70 mls/hr IV. 1000 / 1000 1000 / 1000 CONT .[id number] [facility] Rx#:[id number] Oral 0 / 0 Other: # Voids 3 # Incontinent Voids 3 Date of Last Bowel Movement 06/19/18 06/19/18 # Bowel Movements 2 # Incontinent Bowel Movements 2 Narrative: - Constitutional chronically ill appearing - Routine HEENT Exam Head: Present: normocephalic - Routine Respiratory Exam Present: CTA bilaterally. Absent: accessory muscle use - Routine Abdominal Exam Present: soft, normoactive bowel sounds, wound. Absent: tenderness, distended, guarding, firm Comments: PEG in place - Routine Extremities Exam Present: pulses intact - Routine Skin Exam Present: dry, warm - Routine Neurological Exam Present: alert Patient dysphasia Results - Labs CBC & Chem 7: 06/18/18 14:19 11/21/18 14:19 Microbiology 06/18/18 17:08 Catheterized Urine Urine Culture - Preliminary No growth in 24 hours 06/18/18 15:20 Blood - Peripheral Aerobic Blood Culture - Preliminary No growth in 1 day 06/18/18 15:20 Blood - Peripheral Anaerobic Blood Culture - Preliminary No growth in 1 day 06/18/18 15:15 Blood - Peripheral Aerobic Blood Culture - Preliminary No growth in 1 day 06/18/18 15:15 Blood - Peripheral Anaerobic Blood Culture - Preliminary No growth in 1 day - Imaging Abdomen X-Ray 06/18/18 13:58 CONCLUSION: Radiopaque density of uncertain etiology overlying the right lower quadrant. CT scan could be considered to further evaluate the exact location and possible etiology. Constipation. Chest X-Ray 06/18/18 13:59 CONCLUSION: Right infrahilar infiltrate. Abdomen/Pelvis CT 06/18/18 15:39 CONCLUSION: 1. Radiopaque foreign body in the right lower quadrant located along the posterior aspect of the cecum as described. - Procedures PATIENT NAME: Sergey Hartley MR#: [id number] BIRTHDATE: 1965 ATTENDING: Johnathon Sharma MD ORDER #: [id number] INDICATIONS: The patient is a 53 yr old male here for an EGD with PEG due to PEG placement. PROCEDURE PERFORMED: Peg Placement Assessment and Plan - Assessment (1) Gastrojejunostomy tube dislodgement Code(s): Z43.4 - Encounter for attention to other artificial openings of digestive tract Status: Acute (2) Pneumonia Code(s): J18.9 - Pneumonia, unspecified organism Status: Acute (3) Acute UTI Code(s): N39.0 - Urinary tract infection, site not specified Status: Acute (4) Seizure as late effect of cerebrovascular accident (CVA) Code(s): I69.398 - Other sequelae of cerebral infarction; R56.9 - Unspecified convulsions Status: Chronic - Plan 57 yo male with prior CVA now with: 1. G-tube displacement Has history of G-tube placed due to being unable to take much PO (swallowing difficulty from stroke) CT abd/pelvis shows foreign body which probably represents displaced G-tube. In any case, abdominal exam benign and foreign body will pass on its own likely without issue, but G-tube needs to be replaced. * GI consulted, appreciate recs * Status post PEG placement continue management by GI specialist. Dietitian following. 2. Seizure disorder 2/2 prior stroke Currently with no seizure activity * Continue home seizure / psychiatric medications: lorazepam, Keppra, Lamictal, Risperdal, Trazodone, Seroquel * Per ST recommendation: administer meds crushed in pureed consistency. If this is not possible will hold. Code Status: DNR Discussed Condition With: Nurse Miss Schneider Discharge Planning: Return to SNF pending PEG tube re-placement, additional GI recs (2) Pneumonia Qualifiers: Pneumonia type: due to unspecified organism Laterality: unspecified laterality Lung location: unspecified part of lung Qualified Code(s): J18.9 - Pneumonia, unspecified organism
--- NOTE | 2018-06-20 10:17 | GIPROC ---
[facility] [address] [facility]. [facility], [id number] PEG PROCEDURE REPORT EXAM DATE: 06/20/2018 PATIENT NAME: Sergey Hartley MR#: [id number] BIRTHDATE: 1965 ATTENDING: Johnathon Sharma MD ORDER #: [id number] MOLD PRESS OPERATOR: Azucena Amaral and Lesley Toledo STATUS: inpatient INDICATIONS: The patient is a 53 yr old male here for an EGD with PEG due to PEG placement. PROCEDURE PERFORMED: Peg Placement MEDICATIONS: Per Anesthesia and None. TOPICAL ANESTHETIC: CONSENT: The patient understands the risks and benefits of the procedure and understands that these risks include, but are not limited to: sedation, allergic reaction, infection, perforation and/or bleeding. Alternative means of evaluation and treatment include, among others: physical exam, x-rays, and/or surgical intervention. The patient elects to proceed with this endoscopic procedure. medical equipment was checked for proper function. Hand hygiene and appropriate measures for infection prevention was taken. After the risks, benefits and alternatives of the procedure were thoroughly explained, Informed consent was verified, confirmed and timeout was successfully executed by the treatment team. The patient was anesthetized with topical anesthesia and the [employer] [id number] endoscope was introduced through the mouth and advanced to the Extent of Exam. The instrument was slowly withdrawn as the mucosa was fully examined. The stomach was then inflated with air, and by a combination of transillumination and manual palpation, the site for the gastrostomy tube placement was selected and marked on the anterior abdominal wall. The skin of the anterior abdomen was surgically prepped and draped with sterile towels. Utilizing strict sterile technique, the selected site was then anesthetized with 1% xylocaine by injection into the skin and subcutaneous tissue. A 1 cm incision was made through the skin and subcutaneous tissue, and the needle/cannula assembly was then passed through the abdominal wall and through the anterior wall of the stomach, maintaining visualization with the endoscope. A snare device previously placed through the instrument channel was then opened and placed around the cannula, the needle was removed, and the insertion wire was passed through the cannula and into the stomach lumen. The snare was then loosened from the cannula, and repositioned to snare the insertion wire. The snare was then pulled up to the endoscope distal tip, and the scope was then withdrawn bringing with it the snare and insertion wire. The insertion wire was then released from the snare, and then loop-attached to the Bard 22 Fr gastrostomy tube. Using the "pull technique", the G-tube was then pulled into place by traction on the insertion wire at the abdominal wall end. The G-tube insertion site was then cleansed once again, and the external bolster was placed over the tube to secure it to the abdominal wall. A sterile dressing was then applied, and the procedure terminated. Normal The gastroscope was then slowly withdrawn and removed. ADVERSE EVENT: There were no complications. IMPRESSIONS: S/p percutaneous endoscopic gastrostomy 22F 4.5CM depth Normal EGD Residual food in the stomach noted. Scar of two previous tubes noted. RECOMMENDATIONS: Follow PEG suggestions REPEAT EXAM: procedure as needed Johnathon Sharma MD eSigned: Johnathon Sharma MD 06/20/2018 10:16 AM cc: PATIENT NAME: Sergey Hartley MR#: [id number]
--- NOTE | 2018-06-20 11:19 | P.DIET ---
Nutritional Evaluation Type of nutrition evaluation: initial Nutrition consult regarding: Tube Feeding [place] [facility] [place] Objective - Diagnosis Dislodged G-Tube - Objective % IBW: 133 (IBW: 81kg) Body Weight Used for Calculations: IBW Energy Needs - Lower Range (kCal/kg): 25 Energy Needs - Upper Range (kCal/kg): 30 Lower Limit kCal/kg (kCals): 2,025 Upper Limit kCal/kg (kCals): 2,430 Lower Limit Protein Factor (Grams per Kg): 1.1 Upper Limit Protein Factor (Grams per Kg): 1.3 Lower Protein Needs (Protein): 89 Upper Protein Needs (Protein): 116 Fluid Factor (ml/kg): 30 Estimated Fluid Needs (ml): 2,430 Dietitian Reviewed in Medical Record: Current diet, Curent medications, Intake & Output, Medical history Diet Order: NPO Objective Comments: PMH: CVA, Dysphagia, GERD, HLD, hypothyroidism (not on Synthroid at this time), Schizophrenia Pt is on Hospice, DNR Assessment Assessment: Pt at nutritional risk r/t need for a TF for nutrition support. Pt with dysphagia, G-tube. Admitted for G-tube replacement. Pt's nutritional needs as assessed above. Recommend TF Jevity 1.5 continuous with goal rate 60ml/hr. If bolus feedings are preferred, recommend 4 feedings of 360mls (8am, 12pm, 4pm, 8pm). Either feeding method will provide 1440mls total volume, 2160 kcals, 92gms protein and 1094mls free water which is adequate to meet pt's nutritional needs. Recommendations: TF Recommendations 1. If continuous feeding is preferred, TF Jevity 1.5 with goal rate 60 ml/hr, free water flushes per MD. 2. If bolus feedings preferred, Jevity 1.5: 360mls 4 times daily (ie 8am, 12pm, 4pm, 8pm) 60mls free water flushes before and after bolus feedings 300mls free water q 8 hours to meet pt's fluid needs Additional recs relative to clinical course.
--- NOTE | 2018-06-20 17:25 | ECG ---
Date Performed: 06/20/2018 Time Performed: 08:36:54 PTAGE: 53 years EKG: SINUS BRADYCARDIA BORDERLINE ECG PREVIOUS TRACING : 07/30/2011 16.01 Since the previous tracing, no significant change noted DOCTOR: Andrea France Interpretating Date/Time 06/20/2018 17:23:30
[2018-06-20] MEDS: traZODone 100 MG Tablet PO SCH (20:11)
[2018-06-21] MEDS: Morphine Sulfate Inj 2 MG/ML Vial IV.PUSH PRN ×2 (03:07→09:15)
[2018-06-21] MEDS: Sod Chloride 0.9% Inj 1,000 ML IV.CONT SCH ×2 (04:03→18:06)
[2018-06-21] MEDS: Furosemide 20 MG Tablet PO SCH (09:07)
[2018-06-21] MEDS: lamoTRIgine 100 MG Tablet PO SCH ×2 (09:07→20:27)
[2018-06-21] MEDS: Senna/Docusate Sodium 8.6/50 MG Tablet PO SCH ×2 (09:08→20:43)
[2018-06-21] MEDS: Escitalopram 10 MG Tablet PO SCH (09:08)
--- NOTE | 2018-06-21 14:26 | P.PNGI ---
Subjective Interval history: Patient awake alert PEG tube in place with covering dressing and binder No bleeding or signs of infection noted <Nancy Serna - Last Filed: 06/21/18 14:23> Physical Exam Vital signs: Vital Signs 06/20/18 16:00 06/20/18 20:00 06/20/18 20:38 Temperature 98.2 F 97.7 F Pulse Rate 62 58 L Respiratory Rate 20 20 Blood Pressure 121/79 123/79 Pulse Oximetry 95 94 L 92 L 06/21/18 00:00 06/21/18 04:00 06/21/18 08:00 Temperature 97.6 F 98.2 F 97.9 F Pulse Rate 69 64 85 Respiratory Rate 20 20 15 Blood Pressure 116/70 127/77 117/74 Pulse Oximetry 92 L 92 L 95 06/21/18 12:00 Temperature 97.6 F Pulse Rate 62 Respiratory Rate 17 Blood Pressure 125/71 Pulse Oximetry 96 Intake & Output 06/20/18 06/21/18 06/21/18 18:59 06:59 18:59 Intake Total 1250 / 1250 1000 / 1000 Balance 1250 / 1250 1000 / 1000 Weight 106.4 kg Intake: IV 1000 / 1000 1000 / 1000 NS Inj 1,000 ML @ 70 mls/hr IV. 1000 / 1000 1000 / 1000 CONT .[id number] [facility] Rx#:[id number] Oral 0 / 0 Anesthesia Amount 250 / 250 Other: # Voids 1 4 Date of Last Bowel Movement 06/20/18 # Bowel Movements 1 - Constitutional chronically ill appearing - Routine Respiratory Exam Present: CTA bilaterally - Routine Abdominal Exam Present: soft, normoactive bowel sounds. Absent: tenderness, distended, guarding, firm - Routine Skin Exam Present: dry, warm - Routine Neurological Exam Present: alert, altered mental status <Nancy Serna - Last Filed: 06/21/18 14:23> Vital signs: Vital Signs 06/20/18 16:00 06/20/18 20:00 06/20/18 20:38 Temperature 98.2 F 97.7 F Pulse Rate 62 58 L Respiratory Rate 20 20 Blood Pressure 121/79 123/79 Pulse Oximetry 95 94 L 92 L 06/21/18 00:00 06/21/18 04:00 06/21/18 08:00 Temperature 97.6 F 98.2 F 97.9 F Pulse Rate 69 64 85 Respiratory Rate 20 20 15 Blood Pressure 116/70 127/77 117/74 Pulse Oximetry 92 L 92 L 95 06/21/18 12:00 Temperature 97.6 F Pulse Rate 62 Respiratory Rate 17 Blood Pressure 125/71 Pulse Oximetry 96 Intake & Output 06/20/18 06/21/18 06/21/18 18:59 06:59 18:59 Intake Total 1250 / 1250 1000 / 1000 Balance 1250 / 1250 1000 / 1000 Weight 106.4 kg Intake: IV 1000 / 1000 1000 / 1000 NS Inj 1,000 ML @ 70 mls/hr IV. 1000 / 1000 1000 / 1000 CONT .[id number] [facility] Rx#:[id number] Oral 0 / 0 Anesthesia Amount 250 / 250 Other: # Voids 1 4 Date of Last Bowel Movement 06/20/18 # Bowel Movements 1 <Johnathon Sharma - Last Filed: 06/21/18 14:30> Results - Labs CBC & Chem 7: 06/18/18 14:19 06/18/18 14:19 Microbiology 06/18/18 15:20 Blood - Peripheral Aerobic Blood Culture - Preliminary No growth in 3 days 06/18/18 15:20 Blood - Peripheral Anaerobic Blood Culture - Preliminary No growth in 3 days 06/18/18 15:15 Blood - Peripheral Aerobic Blood Culture - Preliminary No growth in 3 days 06/18/18 15:15 Blood - Peripheral Anaerobic Blood Culture - Preliminary No growth in 3 days 06/18/18 17:08 Catheterized Urine Urine Culture - Final No growth in 48 hours <Nancy Serna - Last Filed: 06/21/18 14:23> - Labs CBC & Chem 7: 06/18/18 14:19 06/18/18 14:19 Microbiology 06/18/18 15:20 Blood - Peripheral Aerobic Blood Culture - Preliminary No growth in 3 days 06/18/18 15:20 Blood - Peripheral Anaerobic Blood Culture - Preliminary No growth in 3 days 06/18/18 15:15 Blood - Peripheral Aerobic Blood Culture - Preliminary No growth in 3 days 06/18/18 15:15 Blood - Peripheral Anaerobic Blood Culture - Preliminary No growth in 3 days 06/18/18 17:08 Catheterized Urine Urine Culture - Final No growth in 48 hours <Johnathon Sharma - Last Filed: 06/21/18 14:30> Assessment and Plan (1) Gastrojejunostomy tube dislodgement Status: Acute Code(s): Z43.4 - Encounter for attention to other artificial openings of digestive tract - Plan This patient is a 53-year-old male with past medical history significant for CVA , depression, dysphagia, GERD, hemiplegia, hyperlipidemia, hypokalemia, hypothyroidism, obesity and schizophrenia. Surgical history is not known. Patient was brought to the emergency room at [facility] from a nursing home facility for evaluation of displaced G-tube. Patient is a phasic and there are no family members present. Per documentation, patient pulled out his G-tube and was previously on a diet of tube feedings and pureed food with thickened liquids. PEG tube displacement As per ER documentation, HPI reveals patient brought to emergency room from nursing home facility for evaluation of displaced G-tube. 06/21/2018 PEG tube placement 06/20/2018 -Per bedside RN patient tolerating bolus PEG tube feedings -S/p percutaneous endoscopic gastrostomy 22F 4.5CM depth Normal EGD Residual food in the stomach noted. Scar of two previous tubes noted. Plan Tube feedings as ordered May use PEG tube for medications Flush tube with 50 cc of water every 4-6 hours Abdominal binder as needed Check residuals for tube feeding tolerance every 4 hours Bowel regimen Supportive care Patient stable for discharge to nursing home facility from GI standpoint GI will sign off at this time This patient has been seen by myself and Dr. Sharma and this note is written on his behalf - Attending Attestation Dr. Sharma <Nancy Serna - Last Filed: 06/21/18 14:23> (1) Gastrojejunostomy tube dislodgement Status: Acute Code(s): Z43.4 - Encounter for attention to other artificial openings of digestive tract - Attending Attestation As above, PEG inplace and no signs of bleeding or infection, diet well tolerated. Please notify if needed again. <Johnathon Sharma - Last Filed: 06/21/18 14:30>
--- NOTE | 2018-06-21 15:32 | P.PN ---
Subjective Interval history: This is a pleasant 53 y/o male with history of Major stroke affecting the left side and secondary seizure disorder, admitted from SNF due to concern for G-tube displacement. Patient is mostly aphasic. 06/20: Seen in his bedroom status post PEG placement by GI specialist, at this time will start tube feedings Dietitian following 06/21: Stable in his bedroom, discussed with nurse Miss Blank, status post PEG placement dietitian recommended to continue Jevity 1.5 continuous to goal 60 ml/hr. if bolus feedings was recommended 4 feedings of 360 ml 8am, 12pm 4pm and 8pm, Either feeding method will provide 1440mls total volume, 2160 kcals , 92gms protein and 1094mls free water which is adequate to meet pt's nutritional needs. EGD was normal. abdominal binder as needed, bowel regimen flush tube with water 50 ml every 4 hours, GI signed off the case. Physical Exam Vital signs: Vital Signs 06/20/18 16:00 06/20/18 20:00 06/20/18 20:38 Temperature 98.2 F 97.7 F Pulse Rate 62 58 L Respiratory Rate 20 20 Blood Pressure 121/79 123/79 Pulse Oximetry 95 94 L 92 L 06/21/18 00:00 06/21/18 04:00 06/21/18 08:00 Temperature 97.6 F 98.2 F 97.9 F Pulse Rate 69 64 69 Respiratory Rate 20 20 15 Blood Pressure 116/70 127/77 117/74 Pulse Oximetry 92 L 92 L 95 06/21/18 12:00 Temperature 97.6 F Pulse Rate 62 Respiratory Rate 17 Blood Pressure 125/71 Pulse Oximetry 96 Intake & Output 06/20/18 06/21/18 06/21/18 18:59 06:59 18:59 Intake Total 1250 / 1250 1000 / 1000 Balance 1250 / 1250 1000 / 1000 Weight 106.4 kg Intake: IV 1000 / 1000 1000 / 1000 NS Inj 1,000 ML @ 70 mls/hr IV. 1000 / 1000 1000 / 1000 CONT .[id number] [facility] Rx#:[id number] Oral 0 / 0 Anesthesia Amount 250 / 250 Other: # Voids 1 4 Date of Last Bowel Movement 06/20/18 06/20/18 # Bowel Movements 1 Narrative: - Constitutional chronically ill appearing - Routine HEENT Exam Head: Present: normocephalic - Routine Respiratory Exam Present: CTA bilaterally. Absent: accessory muscle use - Routine Abdominal Exam Present: soft, normoactive bowel sounds, wound. Absent: tenderness, distended, guarding, firm Comments: PEG in place - Routine Extremities Exam Present: pulses intact - Routine Skin Exam Present: dry, warm - Routine Neurological Exam Present: alert Patient dysphasia Results - Labs CBC & Chem 7: 06/18/18 14:19 06/18/18 14:19 Microbiology 06/18/18 15:20 Blood - Peripheral Aerobic Blood Culture - Preliminary No growth in 3 days 06/18/18 15:20 Blood - Peripheral Anaerobic Blood Culture - Preliminary No growth in 3 days 06/18/18 15:15 Blood - Peripheral Aerobic Blood Culture - Preliminary No growth in 3 days 06/18/18 15:15 Blood - Peripheral Anaerobic Blood Culture - Preliminary No growth in 3 days - Imaging Abdomen X-Ray 06/18/18 13:58 CONCLUSION: Radiopaque density of uncertain etiology overlying the right lower quadrant. CT scan could be considered to further evaluate the exact location and possible etiology. Constipation. Chest X-Ray 06/18/18 13:59 CONCLUSION: Right infrahilar infiltrate. Abdomen/Pelvis CT 06/18/18 15:39 CONCLUSION: 1. Radiopaque foreign body in the right lower quadrant located along the posterior aspect of the cecum as described. - Procedures PATIENT NAME: Sergey Hartley MR#: [id number] BIRTHDATE: 1965 ATTENDING: Johnathon Sharma MD ORDER #: [id number] INDICATIONS: The patient is a 53 yr old male here for an EGD with PEG due to PEG placement. PROCEDURE PERFORMED: Peg Placement Assessment and Plan - Assessment (1) Gastrojejunostomy tube dislodgement Code(s): Z43.4 - Encounter for attention to other artificial openings of digestive tract Status: Acute (2) Pneumonia Code(s): J18.9 - Pneumonia, unspecified organism Status: Acute (3) Acute UTI Code(s): N39.0 - Urinary tract infection, site not specified Status: Acute (4) Seizure as late effect of cerebrovascular accident (CVA) Code(s): I69.398 - Other sequelae of cerebral infarction; R56.9 - Unspecified convulsions Status: Chronic - Plan 57 yo male with prior CVA now with: 1. G-tube displacement Has history of G-tube placed due to being unable to take much PO (swallowing difficulty from stroke) CT abd/pelvis shows foreign body which probably represents displaced G-tube. In any case, abdominal exam benign and foreign body will pass on its own likely without issue, but G-tube needs to be replaced. * GI consulted, appreciate recs * Status post PEG placement 06/20/18 * 06/21:Dietitian recommended to continue Jevity 1.5 continuous to goal 60 ml/ hr. if bolus feedings was recommended 4 feedings of 360 ml 8am, 12pm 4pm and 8pm, Either feeding method will provide 1440mls total volume, 2160 kcals, 92gms protein and 1094mls free water which is adequate to meet pt's nutritional needs. EGD was normal. abdominal binder as needed, bowel regimen flush tube with water 50 ml every 4 hours, GI signed off the case. 2. Seizure disorder 2/2 prior stroke Currently with no seizure activity * Continue home seizure / psychiatric medications: lorazepam, Keppra, Lamictal, Risperdal, Trazodone, Seroquel * Per ST recommendation: administer meds crushed in pureed consistency. If this is not possible will hold. Code Status: DNR Discussed Condition With: discussed with Nurse Miss Blank, with MDR and Dairy Processing Equipment Operator okay to discharge to SNF placed order awaiting for authorization. Discharge Planning: DC to SNF once authorization in chart. (2) Pneumonia Qualifiers: Pneumonia type: due to unspecified organism Laterality: unspecified laterality Lung location: unspecified part of lung Qualified Code(s): J18.9 - Pneumonia, unspecified organism
[2018-06-21] MEDS: traZODone 100 MG Tablet PO SCH (20:27)
[2018-06-22] MEDS: Morphine Sulfate Inj 2 MG/ML Vial IV.PUSH PRN ×2 (08:38→21:45)
[2018-06-22] MEDS: Sod Chloride 0.9% Inj 1,000 ML IV.CONT SCH ×2 (08:42→21:46)
[2018-06-22] MEDS: Senna/Docusate Sodium 8.6/50 MG Tablet PO SCH ×2 (08:43→21:21)
[2018-06-22] MEDS: Furosemide 20 MG Tablet PO SCH (08:43)
[2018-06-22] MEDS: Escitalopram 10 MG Tablet PO SCH (08:43)
[2018-06-22] MEDS: lamoTRIgine 100 MG Tablet PO SCH ×2 (08:43→21:20)
--- NOTE | 2018-06-22 09:35 | P.PN ---
Subjective Interval history: This is a pleasant 53 y/o male with history of Major stroke affecting the left side and secondary seizure disorder, admitted from SNF due to concern for G-tube displacement. Patient is mostly aphasic. 06/20: Seen in his bedroom status post PEG placement by GI specialist, at this time will start tube feedings Dietitian following 06/21: Stable in his bedroom, discussed with nurse Miss Blank, status post PEG placement dietitian recommended to continue Jevity 1.5 continuous to goal 60 ml/hr. if bolus feedings was recommended 4 feedings of 360 ml 8am, 12pm 4pm and 8pm, Either feeding method will provide 1440mls total volume, 2160 kcals , 92gms protein and 1094mls free water which is adequate to meet pt's nutritional needs. EGD was normal. abdominal binder as needed, bowel regimen flush tube with water 50 ml every 4 hours, GI signed off the case. 06/22: already recommended for discharge but not yet authorization to transfer to SNF, stable discussed with nurse Miss Blank, no nausea, vomit or diarrhea. Physical Exam Vital signs: Vital Signs 06/21/18 12:00 06/21/18 16:00 06/21/18 20:00 Temperature 97.6 F 98.7 F 97.4 F L Pulse Rate 63 63 62 Respiratory Rate 17 17 20 Blood Pressure 125/71 125/83 112/72 Pulse Oximetry 96 98 94 L 06/21/18 23:50 06/22/18 00:00 06/22/18 03:50 Temperature 98.1 F Pulse Rate 58 L 65 55 L Respiratory Rate 22 Blood Pressure 115/74 Pulse Oximetry 94 L 06/22/18 04:00 06/22/18 08:00 Temperature 97.2 F L Pulse Rate 61 61 Respiratory Rate 20 Blood Pressure 108/66 Pulse Oximetry 94 L Intake & Output 06/21/18 06/22/18 06/22/18 18:59 06:59 18:59 Intake Total 1000 / 1000 1540 / 1540 1000 / 1000 Output Total 300 / 300 Balance 1000 / 1000 1240 / 1240 1000 / 1000 Weight 105.9 kg Intake: IV 1000 / 1000 1000 / 1000 NS Inj 1,000 ML @ 70 mls/hr IV. 1000 / 1000 1000 / 1000 CONT .[id number] [facility] Rx#:[id number] Oral 0 / 0 Tube Feeding 1440 / 1440 Tube Irrigant 100 / 100 Output: Urine 300 / 300 Other: Date of Last Bowel Movement 06/20/18 06/21/18 # Incontinent Bowel Movements 2 Narrative: - Constitutional chronically ill appearing - Routine HEENT Exam Head: Present: normocephalic - Routine Respiratory Exam Present: CTA bilaterally. Absent: accessory muscle use - Routine Abdominal Exam Present: soft, normoactive bowel sounds, wound. Absent: tenderness, distended, guarding, firm Comments: PEG in place - Routine Extremities Exam Present: pulses intact - Routine Skin Exam Present: dry, warm - Routine Neurological Exam Present: alert Patient dysphasia Results - Labs CBC & Chem 7: 06/18/18 14:19 06/18/18 14:19 Microbiology 06/18/18 15:20 Blood - Peripheral Aerobic Blood Culture - Preliminary No growth in 3 days 06/18/18 15:20 Blood - Peripheral Anaerobic Blood Culture - Preliminary No growth in 3 days 06/18/18 15:15 Blood - Peripheral Aerobic Blood Culture - Preliminary No growth in 3 days 06/18/18 15:15 Blood - Peripheral Anaerobic Blood Culture - Preliminary No growth in 3 days - Imaging Abdomen X-Ray 06/18/18 13:58 CONCLUSION: Radiopaque density of uncertain etiology overlying the right lower quadrant. CT scan could be considered to further evaluate the exact location and possible etiology. Constipation. Chest X-Ray 06/18/18 13:59 CONCLUSION: Right infrahilar infiltrate. Abdomen/Pelvis CT 06/18/18 15:39 CONCLUSION: 1. Radiopaque foreign body in the right lower quadrant located along the posterior aspect of the cecum as described. - Procedures PATIENT NAME: Sergey Harltey MR#: [id number] BIRTHDATE: 1965 ATTENDING: Johnathon Sharma MD ORDER #: [id number] INDICATIONS: The patient is a 53 yr old male here for an EGD with PEG due to PEG placement. PROCEDURE PERFORMED: Peg Placement Assessment and Plan - Assessment (1) Gastrojejunostomy tube dislodgement Code(s): Z43.4 - Encounter for attention to other artificial openings of digestive tract Status: Acute (2) Pneumonia Code(s): J18.9 - Pneumonia, unspecified organism Status: Acute (3) Acute UTI Code(s): N39.0 - Urinary tract infection, site not specified Status: Acute (4) Seizure as late effect of cerebrovascular accident (CVA) Code(s): I69.398 - Other sequelae of cerebral infarction; R56.9 - Unspecified convulsions Status: Chronic - Plan 57 yo male with prior CVA now with: 1. G-tube displacement Has history of G-tube placed due to being unable to take much PO (swallowing difficulty from stroke) CT abd/pelvis shows foreign body which probably represents displaced G-tube. In any case, abdominal exam benign and foreign body will pass on its own likely without issue, but G-tube needs to be replaced. * GI consulted, appreciate recs * Status post PEG placement 06/20/18 * 06/21:Dietitian recommended to continue Jevity 1.5 continuous to goal 60 ml/ hr. if bolus feedings was recommended 4 feedings of 360 ml 8am, 12pm 4pm and 8pm, Either feeding method will provide 1440mls total volume, 2160 kcals, 92gms protein and 1094mls free water which is adequate to meet pt's nutritional needs. EGD was normal. abdominal binder as needed, bowel regimen flush tube with water 50 ml every 4 hours, GI signed off the case. 2. Seizure disorder 2/2 prior stroke Currently with no seizure activity * Continue home seizure / psychiatric medications: lorazepam, Keppra, Lamictal, Risperdal, Trazodone, Seroquel * Per ST recommendation: administer meds crushed in pureed consistency. If this is not possible will hold. DVT prophylaxis Heparin. Code Status: DNR Discussed Condition With: Nurse Abhay Discharge Planning: DC to SNF once authorization in chart. (2) Pneumonia Qualifiers: Pneumonia type: due to unspecified organism Laterality: unspecified laterality Lung location: unspecified part of lung Qualified Code(s): J18.9 - Pneumonia, unspecified organism
[2018-06-22] MEDS: Heparin - SQ 10,000 UNITS/ML Vial SQ SCH (21:19)
[2018-06-22] MEDS: traZODone 100 MG Tablet PO SCH (21:20)
[2018-06-23] MEDS: Heparin - SQ 10,000 UNITS/ML Vial SQ SCH ×2 (05:02→13:04)
[2018-06-23] MEDS: Senna/Docusate Sodium 8.6/50 MG Tablet PO SCH ×2 (08:13→20:10)
[2018-06-23] MEDS: lamoTRIgine 100 MG Tablet PO SCH ×2 (08:13→20:09)
[2018-06-23] MEDS: Furosemide 20 MG Tablet PO SCH (08:13)
[2018-06-23] MEDS: Escitalopram 10 MG Tablet PO SCH (08:13)
[2018-06-23] MEDS: Sod Chloride 0.9% Inj 1,000 ML IV.CONT SCH (12:22)
--- NOTE | 2018-06-23 13:13 | P.PN ---
Subjective Interval history: This is a pleasant 53 y/o male with history of Major stroke affecting the left side and secondary seizure disorder, admitted from SNF due to concern for G-tube displacement. Patient is mostly aphasic. 06/20: Seen in his bedroom status post PEG placement by GI specialist, at this time will start tube feedings Dietitian following 06/21: Stable in his bedroom, discussed with nurse Miss Blank, status post PEG placement dietitian recommended to continue Jevity 1.5 continuous to goal 60 ml/hr. if bolus feedings was recommended 4 feedings of 360 ml 8am, 12pm 4pm and 8pm, Either feeding method will provide 1440mls total volume, 2160 kcals , 92gms protein and 1094mls free water which is adequate to meet pt's nutritional needs. EGD was normal. abdominal binder as needed, bowel regimen flush tube with water 50 ml every 4 hours, GI signed off the case. 06/22: already recommended for discharge but not yet authorization to transfer to SNF, stable discussed with nurse Miss Blank. 06/23: Discussed with nurse Miss James, no changes, no nausea, vomit or diarrhea awaiting final by [employer] for discharge. Physical Exam Vital signs: Vital Signs 06/22/18 16:00 06/22/18 20:00 06/23/18 00:00 Temperature 98.2 F 97.8 F 98.1 F Pulse Rate 60 68 65 Respiratory Rate 13 18 18 Blood Pressure 109/58 L 126/73 131/83 Pulse Oximetry 94 L 93 L 93 L 06/23/18 04:00 06/23/18 08:00 Temperature 97.6 F 97.7 F Pulse Rate 63 53 L Respiratory Rate 18 16 Blood Pressure 125/72 106/72 Pulse Oximetry 93 L 93 L Intake & Output 06/22/18 06/23/18 06/23/18 18:59 06:59 18:59 Intake Total 2620 / 2620 1000 / 1000 1000 / 1000 Output Total 1200 / 1200 Balance 1420 / 1420 1000 / 1000 1000 / 1000 Weight 105.9 kg Intake: IV 1000 / 1000 1000 / 1000 1000 / 1000 NS Inj 1,000 ML @ 70 mls/hr IV. 1000 / 1000 1000 / 1000 1000 / 1000 CONT .[id number] [facility] Rx#:[id number] Oral 0 / 0 0 / 0 Tube Feeding 1440 / 1440 Water Bolus Amount 180 / 180 Output: Urine 1200 / 1200 Other: # Incontinent Voids 2 Date of Last Bowel Movement 06/21/18 06/21/18 06/21/18 Narrative: - Constitutional chronically ill appearing - Routine HEENT Exam Head: Present: normocephalic - Routine Respiratory Exam Present: CTA bilaterally. Absent: accessory muscle use - Routine Abdominal Exam Present: soft, normoactive bowel sounds, wound. Absent: tenderness, distended, guarding, firm Comments: PEG in place - Routine Extremities Exam Present: pulses intact - Routine Skin Exam Present: dry, warm - Routine Neurological Exam Present: alert Patient dysphasia Results - Labs CBC & Chem 7: 06/18/18 14:19 06/18/18 14:19 Microbiology 06/18/18 15:20 Blood - Peripheral Aerobic Blood Culture - Final No growth in 5 days 06/18/18 15:20 Blood - Peripheral Anaerobic Blood Culture - Final No growth in 5 days 06/18/18 15:15 Blood - Peripheral Aerobic Blood Culture - Final No growth in 5 days 06/18/18 15:15 Blood - Peripheral Anaerobic Blood Culture - Final No growth in 5 days - Imaging Abdomen X-Ray 06/18/18 13:58 CONCLUSION: Radiopaque density of uncertain etiology overlying the right lower quadrant. CT scan could be considered to further evaluate the exact location and possible etiology. Constipation. Chest X-Ray 06/18/18 13:59 CONCLUSION: Right infrahilar infiltrate. Abdomen/Pelvis CT 06/18/18 15:39 CONCLUSION: 1. Radiopaque foreign body in the right lower quadrant located along the posterior aspect of the cecum as described. - Procedures PATIENT NAME: Sergey Hartley MR#: [id number] BIRTHDATE: 1965 ATTENDING: Johnathon Sharma MD ORDER #: [id number] INDICATIONS: The patient is a 53 yr old male here for an EGD with PEG due to PEG placement. PROCEDURE PERFORMED: Peg Placement Assessment and Plan - Assessment (1) Gastrojejunostomy tube dislodgement Code(s): Z43.4 - Encounter for attention to other artificial openings of digestive tract Status: Acute (2) Pneumonia Code(s): J18.9 - Pneumonia, unspecified organism Status: Acute (3) Acute UTI Code(s): N39.0 - Urinary tract infection, site not specified Status: Acute (4) Seizure as late effect of cerebrovascular accident (CVA) Code(s): I69.398 - Other sequelae of cerebral infarction; R56.9 - Unspecified convulsions Status: Chronic - Plan 57 yo male with prior CVA now with: 1. G-tube displacement Has history of G-tube placed due to being unable to take much PO (swallowing difficulty from stroke) CT abd/pelvis shows foreign body which probably represents displaced G-tube. In any case, abdominal exam benign and foreign body will pass on its own likely without issue, but G-tube needs to be replaced. * GI consulted, appreciate recs * Status post PEG placement 06/20/18 * 06/21:Dietitian recommended to continue Jevity 1.5 continuous to goal 60 ml/ hr. if bolus feedings was recommended 4 feedings of 360 ml 8am, 12pm 4pm and 8pm, Either feeding method will provide 1440mls total volume, 2160 kcals, 92gms protein and 1094mls free water which is adequate to meet pt's nutritional needs. EGD was normal. abdominal binder as needed, bowel regimen flush tube with water 50 ml every 4 hours, GI signed off the case. 2. Seizure disorder 2/2 prior stroke Currently with no seizure activity * Continue home seizure / psychiatric medications: lorazepam, Keppra, Lamictal, Risperdal, Trazodone, Seroquel * Per ST recommendation: administer meds crushed in pureed consistency. If this is not possible will hold. DVT prophylaxis Heparin. No changes to anterior assessment. Code Status: DNR Discussed Condition With: Nurse miss James. Discharge Planning: DC to SNF once authorization in chart. (2) Pneumonia Qualifiers: Pneumonia type: due to unspecified organism Laterality: unspecified laterality Lung location: unspecified part of lung Qualified Code(s): J18.9 - Pneumonia, unspecified organism
--- NOTE | 2018-06-23 16:30 | P.DS ---
Date of admission: 06/18/18 17:36 Primary care physician: UNKNOWN Attending physician on discharge: Remi Stark Anticipated date of discharge: 06/23/18 Brief History from admission: Patient is a 53-year-old male with a past medical history of CVA. He presents to the emergency room from his SNF for evaluation of displaced G-tube. History is limited and mostly from staff at [facility]. Patient is aphasic and no family is at bedside. according to the report he pulled the G-tube this morning. Previously on a diet of tube feedings and pured with thickened liquids. DS: Diagnosis - Discharge Diagnosis (1) Gastrojejunostomy tube dislodgement Status: Acute (2) Pneumonia Status: Acute (3) Acute UTI Status: Acute (4) Seizure as late effect of cerebrovascular accident (CVA) Status: Chronic DS: Summary Hospital Course: This is a pleasant 53 y/o male with history of Major stroke affecting the left side and secondary seizure disorder, admitted from SNF due to concern for G-tube displacement. Patient is mostly aphasic. 06/20: Seen in his bedroom status post PEG placement by GI specialist, at this time will start tube feedings Dietitian following 06/21: Stable in his bedroom, discussed with nurse Miss Blank, status post PEG placement dietitian recommended to continue Jevity 1.5 continuous to goal 60 ml/hr. if bolus feedings was recommended 4 feedings of 360 ml 8am, 12pm 4pm and 8pm, Either feeding method will provide 1440mls total volume, 2160 kcals , 92gms protein and 1094mls free water which is adequate to meet pt's nutritional needs. EGD was normal. abdominal binder as needed, bowel regimen flush tube with water 50 ml every 4 hours, GI signed off the case. 06/22: already recommended for discharge but not yet authorization to transfer to SNF, stable discussed with nurse Miss Blank. 06/23: Discussed with nurse Miss James, no changes, no nausea, vomit or diarrhea awaiting final by [employer] for discharge. Assessment and Plan - Assessment (1) Gastrojejunostomy tube dislodgement Code(s): Z43.4 - Encounter for attention to other artificial openings of digestive tract Status: Acute (2) Pneumonia Code(s): J18.9 - Pneumonia, unspecified organism Status: Acute (3) Acute UTI Code(s): N39.0 - Urinary tract infection, site not specified Status: Acute (4) Seizure as late effect of cerebrovascular accident (CVA) Code(s): I69.398 - Other sequelae of cerebral infarction; R56.9 - Unspecified convulsions Status: Chronic - Plan 57 yo male with prior CVA now with: 1. G-tube displacement Has history of G-tube placed due to being unable to take much PO (swallowing difficulty from stroke) CT abd/pelvis shows foreign body which probably represents displaced G-tube. In any case, abdominal exam benign and foreign body will pass on its own likely without issue, but G-tube needs to be replaced. * GI consulted, appreciate recs * Status post PEG placement 06/20/18 * 06/21:Dietitian recommended to continue Jevity 1.5 continuous to goal 60 ml/ hr. if bolus feedings was recommended 4 feedings of 360 ml 8am, 12pm 4pm and 8pm, Either feeding method will provide 1440mls total volume, 2160 kcals, 92gms protein and 1094mls free water which is adequate to meet pt's nutritional needs. EGD was normal. abdominal binder as needed, bowel regimen flush tube with water 50 ml every 4 hours, GI signed off the case. 2. Seizure disorder 2/2 prior stroke Currently with no seizure activity * Continue home seizure / psychiatric medications: lorazepam, Keppra, Lamictal, Risperdal, Trazodone, Seroquel * Per ST recommendation: administer meds crushed in pureed consistency. If this is not possible will hold. DVT prophylaxis Heparin. No changes to anterior assessment. Code Status: DNR Discussed Condition With: Nurse miss James. Discharge Planning: DC to SNF once authorization in chart. - Time Spent with Patient Total time spent providing and/or coordinating discharge services: Greater than 30 minutes - Quality: VTE Deep Vein Thrombosis/Pulmonary Embolism Present on Admission: No Exam Vital signs: Vital Signs 06/22/18 20:00 06/23/18 00:00 06/23/18 04:00 Temperature 97.8 F 98.1 F 97.6 F Pulse Rate 68 65 63 Respiratory Rate 18 Blood Pressure 126/73 131/83 125/72 Pulse Oximetry 93 L 93 L 93 L 06/23/18 08:00 06/23/18 12:00 Temperature 97.7 F 97.9 F Pulse Rate 53 L 59 L Respiratory Rate 16 17 Blood Pressure 106/72 99/73 L Pulse Oximetry 93 L 93 L Intake & Output 06/22/18 06/23/18 06/23/18 18:59 06:59 18:59 Intake Total 2620 / 2620 1000 / 1000 1000 / 1000 Output Total 1200 / 1200 Balance 1420 / 1420 1000 / 1000 1000 / 1000 Weight 105.9 kg Intake: IV 1000 / 1000 1000 / 1000 1000 / 1000 NS Inj 1,000 ML @ 70 mls/hr IV. 1000 / 1000 1000 / 1000 1000 / 1000 CONT .[id number] [facility] Rx#:[id number] Oral 0 / 0 0 / 0 Tube Feeding 1440 / 1440 Water Bolus Amount 180 / 180 Output: Urine 1200 / 1200 Other: # Incontinent Voids 2 Date of Last Bowel Movement 06/21/18 06/21/18 06/21/18 Narrative: - Constitutional chronically ill appearing - Routine HEENT Exam Head: Present: normocephalic - Routine Respiratory Exam Present: CTA bilaterally. Absent: accessory muscle use - Routine Abdominal Exam Present: soft, normoactive bowel sounds, wound. Absent: tenderness, distended, guarding, firm Comments: PEG in place - Routine Extremities Exam Present: pulses intact - Routine Skin Exam Present: dry, warm - Routine Neurological Exam Present: alert Patient dysphasia Results Procedures completed during hospitalization: PATIENT NAME: Sergey Hartley MR#: [id number] BIRTHDATE: 1965 ATTENDING: Johnathon Sharma MD ORDER #: [id number] INDICATIONS: The patient is a 53 yr old male here for an EGD with PEG due to PEG placement. PROCEDURE PERFORMED: Peg Placement - Impressions ITS Impressions Abdomen X-Ray 06/18/18 13:58 CONCLUSION: Radiopaque density of uncertain etiology overlying the right lower quadrant. CT scan could be considered to further evaluate the exact location and possible etiology. Constipation. Chest X-Ray 06/18/18 13:59 CONCLUSION: Right infrahilar infiltrate. Abdomen/Pelvis CT 06/18/18 15:39 CONCLUSION: 1. Radiopaque foreign body in the right lower quadrant located along the posterior aspect of the cecum as described. Discharge Plan - Discharge Disposition Patient Disposition: 03 Discharge to SNF - Discharge Condition Condition: Stable - Discharge Order Discharge Orders: Discharge Order (Routine); Ordered 06/21/18 Ordered By: Remi Stark - Discharge Details Anticipated Discharge Date: 06/23/18 Discharge Comment: Follow up with PCP in three days. - Physicians Team Primary Care Provider: UNKNOWN, Attending Provider: Remi Stark Other Providers: Johnathon Sharma MD ; [facility],Agency ; [place],Insurance
[2018-06-23] MEDS: traZODone 100 MG Tablet PO SCH (20:09)
[2018-06-23 20:35] VITALS: BP 114/63; PULSE 68; RESP 18; TEMP 98; O2SAT 94
== END 2018-06-23 20:35 ==
LOC: NEPC 13:42 → NEDA 17:36 → N04 18:56
PROVIDERS: ADMIT Internal Medicine; ATTEND Internal Medicine